=== PATIENT | female | born 1950 | race Caucasian/White ===

== ENCOUNTER 2017-12-14 12:50 | Inpatient (IN) | payer MEDICARE, MEDICAID ==
[~2017-12-14] VITALS: Ht 147.3 cm; Wt 101.8 kg
--- NOTE | 2017-12-14 12:50 | NUR ---
Patient transferred by EMS from [facility] in [place]. Taken to room 304 via stretcher. Transferred into bed. Patient is awake and alert. BEAUTY SHOP MANAGER introduced herself and asks the patient if her name is Akua. Patient responds "yea." Utters single words at times, otherwise no verbal response. Has minimal response to painful stimuli intermittently. Unable to follow verbal commands or assist with cares. Continuous movement of left foot noted, unsure if movement is purposeful. No movement of other extremities at time of assessment. Respirations uplabored on room air with trach capped. Tracheostomy tube secured with trach tube auguste neckband. Mepilex Ag dressing surrounding trach insertion site is clean, dry, and intact. Bowel sounds audible x4. umbilical hernia noted. PEG tube to LUQ is patent. Tube marked at 4.5 cm at the skin. Skin surrounding PEG insertion site is intact with no redness or drainage. Drain sponge is clean, dry, and intact. Patient is incontinent of bowel and bladder. Stool is brown and loose. No liquid stool noted. Incontinent care provided, clean brief applied. All skin is intact with no redness, irritation, or breakdown. Skin to abdominal folds and groin is clean and dry. Few small healing bruises noted to bilateral upper extremities. Head of bed elevated to approximately 35 degrees. Patient is alert, but does not respond or interact during admission assessment. Explained use of call light to patient, and placed beside arm. Fall precautions in place. Patient has chronic cough.
--- NOTE | 2017-12-14 14:05 | NUR ---
Jai Torres PA-C at bedside.
[2017-12-14 14:25] VITALS: BP 153/88
[2017-12-14 15:31] LABS: EOS # 0.1 (0.04-0.40); HEMATOCRIT 41.4 % (37.0-47.0); LYMPH# 1.6 (1.50-4.00); MEAN CELL VOLUME 94 fl (78-100); MEAN CORPUSCULAR HEMOGLOBIN 29 pg (27-31); MEAN CORPUSCULAR HGB CONC 31 g/dL (33-37); MONO # 0.8 (0.20-0.80); NEU # 7.6 (1.40-6.50); PLATELET COUNT 180 K/mm3 (130-400); RED BLOOD COUNT 4.43 M/mm3 (4.10-5.30); RED CELL DISTRIBUTION WIDTH 15.6 % (11.5-14.5); WHITE BLOOD COUNT 10.2 K/mm3 (4.8-10.8)
[2017-12-14 15:38] LABS: MEAN PLATELET VOLUME 12.7 fl (7.4-10.4)
[2017-12-14 15:42] LABS: ALBUMIN 3.9 g/dL (3.5-5.0); CALCIUM 9.8 mg/dL (8.4-10.2); POTASSIUM 4.8 mmol/L (3.6-5.0); TOTAL BILIRUBIN 0.5 mg/dL (0.2-1.3); TOTAL PROTEIN 7.7 g/dL (6.3-8.2)
[2017-12-14 18:56] VITALS: BP 123/76
[2017-12-14 19:39] LABS: URINE APPEARANCE HAZY; URINE BILIRUBIN NEGATIVE (NEGATIVE); URINE BLOOD NEGATIVE (NEGATIVE); URINE COLOR YELLOW; URINE GLUCOSE NEGATIVE (NEGATIVE); URINE KETONE NEGATIVE (NEGATIVE); URINE LEUKOCYTE ESTERASE NEGATIVE (NEGATIVE); URINE NITRATE NEGATIVE (NEGATIVE); URINE PROTEIN(semi-quant) 1+ mg/dL (NEGATIVE); URINE UROBILINOGEN NORMAL (NORMAL)
[2017-12-15] MEDS ORDERED: ZANTAC150 M1 PEG (03:49)
[2017-12-15] MEDS ORDERED: BANATROL PLUS1 SOL PEG (03:49)
[2017-12-15] MEDS ORDERED: IPRATROPIUM BROM3 M1 IH (03:49)
[2017-12-15] MEDS ORDERED: PARLODEL2.5 MG PEG (03:50)
[2017-12-15] MEDS ORDERED: CATAPRES0.1 M1 PEG (03:51)
[2017-12-15] MEDS ORDERED: COREG 25MG25 MG/TAB PEG (03:51)
[2017-12-15] MEDS ORDERED: GOOD SENSE ASPI81 M1 PEG (03:51)
[2017-12-15] MEDS ORDERED: LIPITOR20 M2 PEG (03:52)
[2017-12-15] MEDS ORDERED: AMANTADINE100 M1 PEG (03:53)
[2017-12-15] MEDS ORDERED: ALLFEN400 MG PEG (03:53)
[2017-12-15] MEDS ORDERED: ZESTRIL2.5 M1 PEG (03:54)
[2017-12-15] MEDS ORDERED: METFOMIN HYDRO850 MG PEG (03:54)
[2017-12-15] MEDS ORDERED: ZOLOFT 50MG50 MG PEG (03:56)
[2017-12-15] MEDS ORDERED: RITALIN5 M1 PEG (03:56)
[2017-12-15] MEDS ORDERED: EFFER-K20 MEQ PEG (03:57)
[2017-12-15] MEDS ORDERED: NYSTATIN15 GM TP (03:58)
[2017-12-15] MEDS ORDERED: NOVOLOG FLEX100 U/ML SQ (03:58)
[2017-12-15] MEDS ORDERED: ALBUTEROL2.5 MG/3 M IH (03:59)
[2017-12-15] MEDS ORDERED: CALAMINE LOTIO177 M2 TP (03:59)
[2017-12-15] MEDS ORDERED: QUALITY CH400 MG/5 M PEG (04:00)
[2017-12-15] MEDS ORDERED: ACETAMINOPHEN325 M1 PEG (04:01)
[2017-12-15] MEDS ORDERED: ULTRACET TABLE1 EACH PEG (04:02)
[2017-12-15] MEDS ORDERED: HYDRALAZINE HYD50 MG PEG (04:02)
[2017-12-15] MEDS ORDERED: ENEMEEZ MINI E283 MG RC (04:03)
[2017-12-15] MEDS ORDERED: DULCOLAX10 M1 RC (04:03)
--- NOTE | 2017-12-15 07:10 | NUR ---
TRACH CARE PROVIDED AT THIS TIME, NO COMPLICATIONS OR CONCERNS NOTED, TRACH SITE IS CLEAN AND DRY AT THIS TIME, NO DRAINAGE NOTED, INTERMITTENT COUGHING DURING TRACH SITE CARE BUT PT IS ABLE TO CLEAR HER OWN SECRETIONS AT THIS TIME VIA COUGH
[2017-12-15 07:13] VITALS: BP 153/100
--- NOTE | 2017-12-15 07:30 | NUR ---
TEQUILA (OIL PIPE INSPECTOR) ORDERS TO CONTINUE CURRENT TUBE FEEDING SCHEDULE INCLUDING 290ML JEVITY WITH 135ML WATER FLUSH PRE/POST FEED WITH EXCEPTION TO THE 1600 FEEDING. DURING 1600 FEEDING WE ARE TO ADD 1 PACK OF MANDI MIXED IN 240ML WATER IN ADDITION TO THE JEVITY, ONLY TO FLUSH WITH 30ML PRE/POST DURING THIS FEEDING SESSION FEEDING SCHEDULE REMAINS 0800,1200,1600,2000,0000
--- NOTE | 2017-12-15 09:20 | NUR ---
CALL TO AT THIS TIME TO REVIEW MED CONCERNS FROM PHARMACY, ALL APPRORPIATE NEW ORDERS AND DOSAGES/ROUTES SENT TO PHARMACY AT THIS TIME, PT'S MEDICATIONS UPDATED ACCORDINGLY
--- NOTE | 2017-12-15 17:30 | NUR ---
DURING PM TUBE FEEDING PATIENTS TALKING ABOUT THEIR DOGS AND DURING CONVERSATION PATIENT BEGAN APPROPRIATELY LAUGHING WHEN WOULD TELL A JOKE, THIS HAS HAPPENED MULTIPLE TIMES THROUGHOUT THIS SHIFT WELL LAST EVENING, PT STILL NONVERBAL DURING THIS ENCOUNTER, EYES ARE OPEN BUT NOT TRACKING AT THIS TIME
--- NOTE | 2017-12-15 17:36 | NUR ---
WILL DISCUSS WITH TOMORROW SETTING UP PATIENT WITH A PULMONOLOGY CONSULT TO FURTHER DISCUSS POTENTIALLY REMOVING TRACH IT HAS BEEN CAPPED FOR OVER A MONTH AND NOT IN USE
--- NOTE | 2017-12-15 18:35 | NUR ---
ELEVATED BP'S DISCUSSED WITH RONY DIALLO, REVIEWING VITAL SIGNS AND MEDICATIONS AT THIS TIME
[2017-12-15 18:42] VITALS: BP 197/88
[2017-12-16 06:34] VITALS: BP 165/90
--- NOTE | 2017-12-16 07:00 | NUR ---
Bedside report received from Cinda PELAYO, care of the pt is assumed at this time.
--- NOTE | 2017-12-16 07:15 | NUR ---
BAYRON REPORT COMPLETED WITH CLAUDIA PELAYO
--- NOTE | 2017-12-16 08:35 | NUR ---
ASSESSMENT COMPLETED, VSS, PATIENT DOES OPEN EYES BUT THERE IS NO EYE CONTACT MADE, AND NO PURPOSEFUL MOVEMENT OF ANY EXTREMITY. MERINO PATENT, PEG TUBE IS NCIELY SECURED WITHOUT INDICATION OF ITTITATION, TRACH REMAINS IN PLACE, CAPPED AND NOT BEING USED AT ATLL, TRACH CARES COMPLETED, SPOUSE SITS IN CHAIR AT BEDSIDE. TUBE FEEDING COMPLETED WITHOUT INCIDIENT
--- NOTE | 2017-12-16 09:15 | NUR ---
PT, OT AND ST WORK WITH PATIENT. THEY USE THE KARLA LIFT TO GET PATIENT FROM BED TO CHAIR AND THEN BACK. PATIENT REMAINS WITHOUT ANY PURPOSEFUL RESPONSES.
--- NOTE | 2017-12-16 12:46 | NUR ---
SPOUSE LEAVES PATIENT ROOM FOR THE FIRST TIME TODAY, HE USES A W/C A SUPPORTIVE DEVICE. PATIENT TOLERATED TUBE FEEDING WELL, HOB ELEVATED APPROX 40.
--- NOTE | 2017-12-16 12:59 | NUR ---
REPORT TO KYMBERLY PELAYO
[2017-12-16 18:23] VITALS: BP 157/82
--- NOTE | 2017-12-16 20:45 | NUR ---
TRACH CARES WERE PERFORMED, ASSESSEMENT COMPLETED, PEG TUBE DRESSING IS CLEAN, DRY AND INTACT, FLUSHES EASILY WITH 70 CC OF WATER, MEDS GIVEN, THEN TUBE FEEDING OF 237 CC OF JEVITY 1.5 GIVEN AND PEG TUBE FLUSED AGAIN WITH 70 CC OF WATER, BREATHING TREATMENT GIVEN WITH NURSE AT BEDSIDE THROUGHOUT, PATIENT TOLERATED WELL, NEB TREATMENT SEEMS TO IRRITATE HER COUGH A LITTLE, DRY NON-PRODUCTIVE COUGH NOTED, SKIN INTACT, SUKH CARES PROVIDED, NURSE HAS NOT SEEN PATIENT MOVE EITHER UPPER EXTREMITY AT ALL, NO MOVEMENT NOTED FROM RIGHT LEG, PATIENT IS ABLE TO WIGGLE LEFT FOOT SOME BUT NO TO COMMAND, OPENS EYES AND LOOKS AROUND A LITTLE BUT DOES NOT SEEM TO LOOK AT THE PERSON TALKING TO HER, NO VERBAL RESPONSES NOTED, PATIENT REPOSITIONED AND SUKH CARES PROVIDED, WHILE PATIENT IS LYING ON THE RIGHT SIDE, NURSE TOLD A JOKE AND PATIENT APPEARED TO LAUGH, MINIMAL SOUND CAME OUT BUT HER BELLY WAS SHAKING AND FACE LOOKED LIKE SHE WAS SMILING, ORAL CARES PROVIDED AND PATIENT SUCKS ON MOUTH SWAB, NURSE PLACES CHAP STICK ON PATIENTS LIPS AND SHE LICKS IT RIGHT BACK OFF, PATIENT DOES NOT MOVE HEAD OR NECK BUT DOES HAVE CONTROL OF HER MOUTH, TONGUE AND SOME FACIAL EXPRESSIONS,
--- NOTE | 2017-12-16 23:20 | NUR ---
PEG TUBE RESIDUAL CHECK-25CC, TUBE FEEDING OF 237CC OF JEVITY 1.5 GIVEN WITHOUT DIFFICULTY, FLUSHED WITH 70 CC OF WATER BEFORE AND AFTER FEEDING, PATIENT REPOSITIONED IN BED, NO ACUTE DISTRESS NOTED, SIDE RAILS UP X 2, CALL LIGHT WITHIN REACH,
[2017-12-17 06:09] VITALS: BP 132/80
--- NOTE | 2017-12-17 09:30 | NUR ---
Therapies assist pt to recliner using kaur lift. Once therapy is complete, this RN administers medications and feeding through PEG tube, flushing with free water before and after. Performed trach and PEG tube cares/cleansing, replaced guaze sponges beneath each. Pt does not follow instruction but does respond to some stimulation like touching lips with chapstick, she will open mouth to allow to be applied and open mouth to accept swab for moisture and cleaning. Pt is left sitting up in recliner after feeding, chair is alarmed.
[2017-12-17 18:33] VITALS: BP 155/57
--- NOTE | 2017-12-18 06:12 | NUR ---
Pt rest in bed during the night. Pt requires staff to preform all cares. Pt makes no verbal communication. Eyes open but pt unresponsive. Tube feeding q 4 hrs per gravity flow. Smith catheter remains in palce with 500cc clear yellow urine in dependent drainage. Pt has one bari lose BM. Pt skin intact but there is was some irritatin on thights due to incontace brief. Trach cleansed and new dressing was put in place. Peg tube cleansed and new dressing in place.
[2017-12-18 06:17] VITALS: BP 144/78
--- NOTE | 2017-12-18 09:20 | NUR ---
Pt alert this am with eyes open. Nonverbal. Pt tracking and able to squeeze hands equally. Meds, Jevity 1.5, and Pectin given via tube per order without issue. PEG and trach dressing c/d/i. Pt repositioned for comfort.
[2017-12-18 18:29] VITALS: BP 137/84
--- NOTE | 2017-12-19 06:18 | NUR ---
Pt continues to remain uresponsive. Pt does open eyes to vocal stimulation but not every time. no facial grimmacing with repositioning. Pt has 2 incontinent stools. Smith cathter remains in place dark anabel urine. Tube feeding Jevity 1.5 tess q 4hrs with 70 cc water prior to feeding and after. Ocassional non-productive cough. Oral care provied when pt is turned. Medications crushed and given through the PEG tube. Clean dressing applied to PEG tube. Trach cleansed and new dressing under trach. Pt has occasional cough. Ashli-area remains mosit at all times, Desenex powder applied.
[2017-12-19 06:32] VITALS: BP 152/91
--- NOTE | 2017-12-19 08:40 | NUR ---
Pt eyes open to tactile stimiui. PROM to arms and pt grimaces. Pt asked if she is having pain. Pt clearly verbalizes, "No, I don't have pain". Pt does not appear to turn to follow activity in the room at this time. Trach capped. Cough noted without production. Lungs clear anteriorly - will check posterior when up in chair). PEG tube intact - 25 ml of residual noted and returned to stomach. PEG flushed w/ 70 mls of water and flows freely per gravity. Meds crushed and administered through PEG, Jevity 1.5 (237ml) given per gravity flow and then PEG flushed w/ another 70 mls of h20 without difficulty. PROM to feet - pt again grimaces with touching to right foot. Right side appears flaccid. Pt has some pull against gravity fall with left arm and does move left toes. Smith patent yellow clear urine.
--- NOTE | 2017-12-19 10:00 | NUR ---
Laughs when staff turning her. Pt noted to have a wet chux underneath her and incontinet of small amount yellow stool. Pericare given and then back washed for comfort. Pt does not assist with turning. No breakdown noted on heels - heels floated. Noted to be a little red at inner thighs - desenex and interdry applied. slight irritation on flavia area d/t stool and moisture - will continue to watch - barrier cream applied. Bed alarm on.
--- NOTE | 2017-12-19 10:45 | NUR ---
Chuxs weighed - 4 oz. Documented in I & O under void.
--- NOTE | 2017-12-19 12:35 | NUR ---
Erik lift used to transfer pt to chair. Lungs clear to asculation posteriorly all lobes. Hands appear more puffy. Arms remain elevated on pillow. PROM to upper extremities and feet prior to going to recliner. Pt grimaces when her arms are raised. Cleansed of small amount of yellow liquid stool.
--- NOTE | 2017-12-19 13:45 | NUR ---
Dr. Persaud notified of weight gain. See orders. Also notified of loose yellow stools and irritation to bottom. See order for immodium.
--- NOTE | 2017-12-19 17:23 | NUR ---
Pt continues to leak around her catheter and noted to have some irritation in periarea. Dr. Johnson aware and recommends irrigation before reinserting a new catheter. Caldwell cath irrigation w/ sterile water by GITA guillaume with return of blood tinged urine. Noted to still have leakage around catheter. Present caldwell cath dc'c and new cath 16 chilean w/ 30 ml bulb inserted by GITA Guillaume using sterile technique w/ return of yellow urine. 30 ml bulb filled w/ NS. Desenex powder to irritated areas and allowed to air dry. scant amound of yellow loose stool noted w/ repositioning and pericare given. chux weighed under pt from leaking catheter - noted 180 ml urine. PROM to upper extremities - no grimacing this time.
--- NOTE | 2017-12-19 18:15 | NUR ---
PEG tube w/ gravity flow tube feeding without difficulty. Pt HOB remains up with feedings and at least 30 minutes after feedings. Occasional "yes" response from pt but not other phrases noted rest of the day. Resp remain unlabored but shallow and 28. Cough noted more in early am than rest of day - no production seen. Urine emptied from caldwell post Lasix - 300 ml plus weighed chuxs from leaking around catheter- see I & 0. No further leaking noted since catheter replaced. Pt appears comfortable today except for occasional grimace earlier in the day. No family here to visit today.
[2017-12-19 19:04] VITALS: BP 122/68
[2017-12-20 00:35] LABS: PH-URINE 8.5 (5.0 - 8.0); URINE APPEARANCE CLEAR; URINE BILIRUBIN NEGATIVE (NEGATIVE); URINE BLOOD 250 ery/uL (NEGATIVE); URINE COLOR YELLOW; URINE GLUCOSE NEGATIVE (NEGATIVE); URINE KETONE NEGATIVE (NEGATIVE); URINE LEUKOCYTE ESTERASE 1+ (NEGATIVE); URINE NITRATE NEGATIVE (NEGATIVE); URINE PROTEIN(semi-quant) TRACE mg/dL (NEGATIVE); URINE UROBILINOGEN NORMAL (NORMAL)
--- NOTE | 2017-12-20 05:26 | NUR ---
Pt amited after failing to make progress at the rehab ceneter followiiny her CVA that left her flaced in all extrimities. PT reuires PEG tube feeding q 4 hrs with 70cc water prior and after. Pt repositioned q 2 hrs and excoriation fom skin. music palyed for pt during the night. Smith catheter to dependant drainage clear yellow urine. No leaking from cathter this shift and no lose stools. Pt make no formaly kind of communication to staff that asssist pt.
[2017-12-20 06:25] VITALS: BP 134/58
[2017-12-20 08:49] LABS: POTASSIUM 3.9 mmol/L (3.6-5.0)
[2017-12-20 09:31] LABS: EOS # 0.1 (0.04-0.40); EOS % 1.4 % (1.0-5.0); HEMATOCRIT 35.6 % (37.0-47.0); HEMOGLOBIN 11.3 g/dL (12.5-16.0); LYMPH# 1.1 (1.50-4.00); MEAN CELL VOLUME 93 fl (78-100); MEAN CORPUSCULAR HEMOGLOBIN 29 pg (27-31); MEAN CORPUSCULAR HGB CONC 32 g/dL (33-37); MONO # 0.5 (0.20-0.80); NEU # 5.2 (1.40-6.50); PLATELET COUNT 135 K/mm3 (130-400); RED BLOOD COUNT 3.84 M/mm3 (4.10-5.30); RED CELL DISTRIBUTION WIDTH 15.2 % (11.5-14.5)
[2017-12-20 09:32] LABS: MEAN PLATELET VOLUME 13.3 fl (7.4-10.4)
[2017-12-20 18:35] VITALS: BP 154/84
--- NOTE | 2017-12-20 19:15 | NUR ---
Bed side shift report received from Hoda Pierre RN. Pt awake, a/o x 3 resting in bed. Call light with in reach of pt. Bed alarm set. Asked pt if she was having any pt. Pt stated "no, I'm not having any pain." Oxygen on at 2L/NC. Int in right AC. No reddness or swelling area none tender to touch.
--- NOTE | 2017-12-20 19:30 | NUR ---
Bed side shift report received from Hoda Pierre RN. Call light with in reach of pt. Bed alarm set. Pt does not open eyes when spoken too. Will squeeze left hand when asked and move left foot when asked. Unable to move right upper arm or right leg and foot when asked. No facial grimacing noted.
--- NOTE | 2017-12-20 20:00 | NUR ---
Tracheostomy care given, dressing changed done. Scant amount of drainage noted on dressing and around trach tube when cleaned. Inner cannula intact, no drainage noted. Tolerated with out difficulty. Pt coughed 3 times, none productive. Sa02 96% on room air. Pulse 90, respirations 16 and even.
--- NOTE | 2017-12-21 01:00 | NUR ---
Resting in bed, eyes closed. Respirations 16 and even. Pulse 101, Sa02 96% on room air. Pt does not open eyes when spoken too. Will follow some commands such as take a deep breath.
--- NOTE | 2017-12-21 05:00 | NUR ---
Sa02 94-96% on room air. Pulse 93, respirations 16-18. Pt has been turned Q two hours. Bed alarm set and call light with in reach of pt. Pt has had none productive loose cough. I have attempted oral suctioning x 3. Pt closes mouth.
[2017-12-21 06:23] VITALS: BP 176/76
--- NOTE | 2017-12-21 07:38 | NUR ---
Bed side shift report given to Hoda Pierre RN
--- NOTE | 2017-12-21 07:45 | NUR ---
Patient resting in bed. Lethargic. Head of bed elevated approximately 30 degrees. Skin is very warm and diaphoretic. Opens eyes only very briefly. Does not speak or interact otherwise. Respirations unlabored on room air with trach capped. Patient has intermittent dry cough. Indwelling caldwell catheter to dependent drainage. Caldwell is free flowing without kinks or twists. Securement device intact to right thigh. PEG tube to LUQ. Drain sponge is clean, dry, and intact. No redness, drainage, or edema noted to PEG insertion site. Call light placed on patients chest. Fall precautions in place.
[2017-12-21 18:47] VITALS: BP 123/59
--- NOTE | 2017-12-21 19:30 | NUR ---
Report received from Nuris PELAYO. Patient opens eyes to verbal stimuli. No verbal response to questions asked. No signs of pain or distress. Trach care provided. Assessment completed. Smith Cath patent to DD with clear yellow urine. PEG tube intact, with dressing CDI. Bed alarm on. Call light in reach. Remains on a turn Q 2 hour schedule with oral cares. HOB elevated 30-45 degrees.
--- NOTE | 2017-12-21 20:30 | NUR ---
Scheduled PEG feeding and medications given via tube. No residual noted. PEG patent. Flushed before and after medications and feeding with water. PECTIN instilled per order. Nebulizer tx administered via mask. Has occasional NPC with medications, feeding and nebulizer tx. HOB remains elevated minimum of 30 degrees.
[2017-12-22 06:30] VITALS: BP 172/83
--- NOTE | 2017-12-22 07:17 | NUR ---
Report to Joie PELAYO.
[2017-12-22 07:22] LABS: CALCIUM 9.4 mg/dL (8.4-10.2); POTASSIUM 4.1 mmol/L (3.6-5.0)
--- NOTE | 2017-12-22 10:00 | NUR ---
UPON ENTERING ROOM, PT NOTED TO HAVE EXPELLED SMALL AMOUNT CLEAR SPUTUM. NOTED TO HAVE BEEN HEARD COUGHING PRIOR TO THIS RN ENTERING ROOM BUT THIS HAS DISSIPATED AT THIS TIME. PT SITS WITH HEAD ELEVATED DURING TUBE FEEDING. 8ML REYNAGA RESIDUAL NOTED. TOLERATED WELL. CLEANSED AROUND STOMA WITH PEROXIDE AND NS AND REPLACED INNER CANNULA. AREA AROUND STOMA WITH SLIGHT IRRITATION AND SCANT AMOUNT THICK BLOOD-TINGED DRAINAGE. REPLACED AG MEPILEX AROUND STOMA SITE. ALSO CLEANSED AND CHANGED DRESSING AROUND PEG TUBE. ONCE PT HAD SET UP FOR APPROX 45 MINUTES, LAYED FLAT, CLEANSED SUKH-AREA AND REPOSITIONED ONTO R SIDE. ALL SKIN INTACT, WITHOUT REDNESS OR BREAKDOWN.
--- NOTE | 2017-12-22 16:42 | NUR ---
On 12-17-17 pt's daughter Brii calls and gives this nurse social info on pt, stating that she likes [employer] and the [employer]. She states that she would like her mother to be able to come back to [facility], [place] and be where the majority of her family lives, including her only grandchildren, and that she would pay for the medical transportation. She states that she needs to be in a LTCF where she can get good care, and that pt's Logan Davis is not able to provide care for her in her home, because it would first of all not even have the room to have a akur lift or a hospital bed. She is appreciative of care given to her mother and is sorry that pt's will no longer respond to this facility or come to see her mother, but she states this is not the first time he has done this. [facility] also would not let him keep food in the ICU and he walked out of this facility and would not speak to any of [facility] staff afterwards. On 12-20-17, this nurse and adm, David Ortiz attend a meeting requested by pt's son, Camron Pedroza and his ; Alberto Pedroza and his ; and pt's ex sister in law, Rochelle. These family members say that the home is not big enough to accomodate a hospital bed and/or a kaur lift, that pt would be better cared for in a LTCF, and that one of them needs to be named DPOA if Logan Davis will not communicate with facility, and they want to know how to get this done. They cannot agree amongst themselves, with Alberto (and his ) being the dissenting voice, on who might be an appropriate DPOA. The names most could agree upon is Brii and Aunt Sara. They propose that pt's Logan Davis is not physically able to take care of their mother in the condition she is in and that not only would it be a detriment to his health but to hers as well for him to attempt to give her the care she will now require. They would like to see her placed in a LTCF for continued care, closer to [place] where they say most of her family is. On 12-21-17, this nurse spoke to pt's sister Sara who was visiting pt, but was at the nurse's station. As facility credit risk manager, Stephie Novoa, has requested phone #'s and addresses of all of the children, Sara was asked if she might be able to give facility this information, she states that she believes she can and will email it to this nurse after confirming w/ the kids that her info is correct. On this date, 12-22-17, this nurse calls pt's to discuss the results of the care planning meeting that is held on this date. Both and pt's listed cell #'s are called and messages left that [facility] CM was attempting to speak to him regarding the care planning meeting and CM return Call # was also left. No response or return call at this time. 12-22-17 Pt's son Alberto calls this nurse and asks why did 2 police officers show up at Logan Davis's home and tell him to call a number that was disconnected. Alberto gives the number of [phone] and wants to know what does this nurse know about it. This nurse states that number was given to him incorrectly, it is [phone], and it is the phone number of Stephie, our credit risk manager, and that she had sent the police officers out to give him a message to call her as he was not responding to any of her calls. Nurses then transfer a call to this nurse's phone from Loganrhoan Davis who wants to know if Stephie is David's boss. He is told, "No she is a credit risk manager who helps us as a facility handle issues such as not being able to communicate w/ family members". Logan Davis is place on hold and Stephie is called and she agrees to call Mr Davis right back at [phone], he is notified and in agreement to keep his phone on for a very short while, but states, he will not keep it on all night. Stephie is notified and agrees to call Mr Davis immediately.
--- NOTE | 2017-12-22 17:10 | NUR ---
Pt's dtr Gloria Blood ([phone]) calls this nurse asking why did her Aunt Sara ask for her contact information. She is notified the our brisket puller, Stephie is trying to get all the children of Akua Davis's contact information so that she can collectively contact them as Mr Davis will not return any of our phone calls and will not speak to us about his 's care and we need to be able to communicate w/ pt's family about her care and her care plan. Gloria is given Tailor Apprentice's phone # to call to discuss further, for which she is thankful and then gives this nurse her contact information [address] [facility] [place] [address] [address] and requests that if we cannot get in touch w/ her at the above # we call her work cell [phone].
[2017-12-22 18:36] VITALS: BP 157/95
--- NOTE | 2017-12-22 20:00 | NUR ---
Report received from Joie PELAYO. Patient rests in bed with eyes closed. No verbal response when spoken too, does not open eyes to nurse voice but opens later during cares. Trach care provided. Noted small amount of thick drainage on old dressing. External trach cleansed and new dressing applied. Patient has some coughing during and after procedure but does not last over 10 minutes. PEG tube site patent. Cleansed and new drain sponge applied. PEG feeding of Jevity 1.5 administered after medications given via PEG. Flushed before and after both medications and feeding. No residual noted prior to feeding. DEBARKER OPERATOR in room to help reposition. Ashli, catheter and oral cares provided. HOB elevated > 30 degrees. Bed alarm on. Call light in reach. L hand elevated on pillow, noted to be puffy.
--- NOTE | 2017-12-23 00:29 | NUR ---
Medication administration. PEG tube feeding, oral cares and repositioning provided. PEG patent. No residual noted. Feeding elicits cough but settles back down after repositioned. Eyes open. No verbal response to Yes or No questions. Bed alarm on. Call light in reach.
[2017-12-23 06:14] VITALS: BP 139/84
--- NOTE | 2017-12-23 06:20 | NUR ---
PACKAGING MATERIALS INSPECTOR notified of 2 lb Wt gain since yesterday and 6 lbs since admit.
[2017-12-23 06:35] LABS: CALCIUM 8.8 mg/dL (8.4-10.2); POTASSIUM 4.3 mmol/L (3.6-5.0)
--- NOTE | 2017-12-23 07:06 | NUR ---
Report to Joie PELAYO.
--- NOTE | 2017-12-23 09:45 | NUR ---
Pt has been coughing this AM and unable to raise any sputum. Swabbed mouth, allowed pt to swallow excess water and changed out inner cannula. This appeared to calm cough for approx 10 minutes then pt began coughing again. Suctioned trach via sterile procedure. Removed small amount thick, white sputum via suction x 3 passes. Hyperoxygenated between each pass. Pt tolerated well. Replaced inner cannula again. Pt calm, no coughing noted, appears comfortable.
--- NOTE | 2017-12-23 11:30 | NUR ---
Talked with Jannette RT at [facility] regarding pt continued coughing. She reinforces to continue suctioning PRN if cough sounds "wet" and agrees that from this RN report, the trach is most likely irritating trachea r/t q2 hour turns and repositioning for feedings and meds.
--- NOTE | 2017-12-23 12:00 | NUR ---
Met w/ SWB team this am to discuss further poc, which was decided that a CARE Assessment would most likely be needed so that pt might either continue SN care in a facility closer to her or in case she should eventually need LTC the CARE Assessment would be completed. Called Bertin's phone # [phone] and Logan Davis's phone # and left messages at both that a CARE Assessment has been requested from [facility] as our SWB team plans for discharge in advance and should she need to continue care in a SNF or possibly LTCF this would be completed, or if she should be able to return to her home a CARE Assessment can help get her the community resources she may need.
--- NOTE | 2017-12-23 13:00 | NUR ---
Pt's sister Sara arrives w/ Bertin, pt's youngest son and caregiver. Therapies are notified that Bertin is available for caregiver training. Bertin states he thinks w/ training he could take care of her but he also states that he does not think the home is big enough to hold a hospital bed or a lift. He states he has gotten earlier message about CARE Brakeshoe Repairer and will pass it on to Logan Davis, and he is told that as he is a caregiver (he states he is mostly the one who does all the care for his mother) he might be able to answere CARE Brakeshoe Repairer's questions. He is agreeable. Pt sister Sara gives a list of all of pt children's contact information.
--- NOTE | 2017-12-23 13:30 | NUR ---
Sister here along w/ pt's son.
--- NOTE | 2017-12-23 17:00 | NUR ---
Pt noted to have increased cough and increased edema noted to extremeties. Pt is also noted to have decreased urine output during this shift. Notified Jai Goldberg APRN, new orders obtained.
[2017-12-23 17:56] LABS: EOS # 0.1 (0.04-0.40); EOS % 0.9 % (1.0-5.0); HEMATOCRIT 37.4 % (37.0-47.0); HEMOGLOBIN 11.9 g/dL (12.5-16.0); MEAN CELL VOLUME 93 fl (78-100); MEAN CORPUSCULAR HEMOGLOBIN 30 pg (27-31); MEAN CORPUSCULAR HGB CONC 32 g/dL (33-37); MEAN PLATELET VOLUME 12.6 fl (7.4-10.4); MONO # 0.7 (0.20-0.80); NEU # 5.7 (1.40-6.50); PLATELET COUNT 137 K/mm3 (130-400); RED BLOOD COUNT 4.04 M/mm3 (4.10-5.30); RED CELL DISTRIBUTION WIDTH 15.1 % (11.5-14.5); WHITE BLOOD COUNT 7.5 K/mm3 (4.8-10.8)
--- NOTE | 2017-12-23 17:57 | NUR ---
Performed lavage on tracheostomy using sterile suction and 0.9% Sodium Chloride 3ml nebule. Minimal clear, thick sputum suctioned. Pt tolerated well and coughing has decreased at this time.
[2017-12-23 18:11] VITALS: BP 158/73
[2017-12-23 18:11] LABS: ALBUMIN 3.6 g/dL (3.5-5.0); CALCIUM 9.1 mg/dL (8.4-10.2); POTASSIUM 4.5 mmol/L (3.6-5.0); TOTAL BILIRUBIN 0.6 mg/dL (0.2-1.3); TOTAL PROTEIN 6.9 g/dL (6.3-8.2)
--- NOTE | 2017-12-23 18:30 | NUR ---
Recheck pt, she is noted to be lying L side, relaxed position, no signs of distress, no cough at this time.
--- NOTE | 2017-12-23 19:15 | NUR ---
Shift report received from Joie Rahman RN. Pt resting in bed, eyes closed with even and none labored respirations. Bed alarm set. Call light with in reach of pt. Sa02 97% on room air. Pulse 92, Respirations 28. Smith to dependant drainage. Urine color clear yellow.
--- NOTE | 2017-12-23 21:10 | NUR ---
2000 Tracheostomy care given, pt tolerated with out difficulty. Sa02 99% on room air. Pulse 96, Respirations 24. 2100 Tolerated peg tube feeding with out difficulty.
--- NOTE | 2017-12-23 21:29 | NUR ---
Tolerated breathing treatment without difficulty. Sa02 97% on room air, pulse 96, respirations 28 and even. Pt does not open eyes when spoken too. Pt will follow a few commands such as squeezing my finger with her left hand when asked and taking deep breaths when asked.
--- NOTE | 2017-12-24 01:00 | NUR ---
Resting in bed, eyes closed respirations continue to be 28 and even. Pulse 93, Sa02 97% on room air. Oral care given Q 2 hours. Repostioned Q 2 hours.
--- NOTE | 2017-12-24 04:30 | NUR ---
Sa02 96% on room air. Pulse 94, respirations 28 and even. Oral care given. Cool wash cloth to face and axillary area at 0030 and 0430. Pt each time pt opened eyes and smiled.
[2017-12-24 06:30] VITALS: BP 140/80
[2017-12-24 07:05] LABS: CALCIUM 9.3 mg/dL (8.4-10.2); POTASSIUM 4.2 mmol/L (3.6-5.0)
--- NOTE | 2017-12-24 07:15 | NUR ---
Shift report given to Joie Rahman RN
--- NOTE | 2017-12-24 09:00 | NUR ---
Pt given medications and tube feeding via gravity to PEG tube. Pt noted to be comfortable, no coughing, no signs of distress noted. Skin all intact. Pt continues to have generalized edema in all extremeties. Note that pt has cough with bx tx. Discuss with provider who d/c's med at this time. Smith with clear yellow urine to dependant drainage.
--- NOTE | 2017-12-24 10:40 | NUR ---
Pt up to recliner with therapies.
--- NOTE | 2017-12-24 12:30 | NUR ---
bedside report from celia kelsey
--- NOTE | 2017-12-24 13:00 | NUR ---
TYLENOL GIVEN PER PEG FOR TEMP AND PRN SALINE STEFAN ALSO GIVEN,
--- NOTE | 2017-12-24 13:40 | NUR ---
PATIENT SLEEPS SOUNDLY, SHE APPEARS VERY COMFORTABLE
--- NOTE | 2017-12-24 15:49 | NUR ---
CATH URINE SPEC TO LAB
[2017-12-24 16:48] LABS: URINE APPEARANCE HAZY; URINE COLOR YELLOW; URINE PROTEIN(semi-quant) 1+ mg/dL (NEGATIVE)
[2017-12-24 16:49] LABS: URINE BILIRUBIN NEGATIVE (NEGATIVE); URINE BLOOD 50 ery/uL (NEGATIVE); URINE GLUCOSE NEGATIVE (NEGATIVE); URINE KETONE NEGATIVE (NEGATIVE); URINE LEUKOCYTE ESTERASE 2+ (NEGATIVE); URINE NITRATE NEGATIVE (NEGATIVE); URINE UROBILINOGEN NORMAL (NORMAL); URINE WBC >50 /hpf (0-3)
[2017-12-24 18:02] VITALS: BP 156/81
--- NOTE | 2017-12-24 19:05 | NUR ---
bedside repor to lexi sewell
[2017-12-25 06:22] VITALS: BP 158/84
--- NOTE | 2017-12-25 07:36 | NUR ---
Repositioned Q 2 hours and PRN with oral cares. Nebulizer tx given x1 for cough. Report to Nuris PELAYO.
--- NOTE | 2017-12-25 14:00 | NUR ---
Dr. Johnson notified of irritation to patient's tongue.
--- NOTE | 2017-12-25 15:05 | NUR ---
Dr. Johnson at bedside.
--- NOTE | 2017-12-25 17:50 | NUR ---
Patient alert and oriented. Rates pain 6/10 to bilateral feet and neck. PRN norco administered per patient request. At rest, oxygen saturation 99% on oxygen at 2 liters via nasal cannula. With ambulation, oxygen saturation 94-97% on oxygen at 3 liters via nasal cannula. Oxygen decreased to 1 liter at rest, and 2 liters with ambulation. Patient reports shortness of breath with exertion, states that it is no more than usual. Demonstrates correct usage of I.S. when prompted. ANNITA wraps to bilateral lower extremities removed after patients report of discomfort. Patient denies needs or questions at this time. Fall precautions in place.
[2017-12-25 18:42] VITALS: BP 121/77
--- NOTE | 2017-12-25 20:30 | NUR ---
Report received from Nuris PELAYO. Patient rests in bed. Eyes closed. No verbal response with stimulation. Opens eyes with cares. Scheduled PEG tube feeding and medications administered via PEG with gravity flow. 10cc residual noted prior to feeding. Feeding elicits cough from patent. HOB elevated 30-45 degrees before, during and after feeding. Incontinent of large amount of soft BM. Continues to ooze BM from rectum continous after cleansing. Anal region with pinpoint bleeding areas from frequent BM's. Barrier cream applied. Repositioned with oral cares. Trach care provided. Has moderate amount of thick yellow mucous on old dressing. Inner cannula changed. Shows no signs of pain or distress at this time. Continues to have generalized edema, with Bilateral hand edema as well.
--- NOTE | 2017-12-26 00:36 | NUR ---
Incontinent of large soft BM. Ashli cares provided. Repositioned. Again coughing noted with administration of bolus feeding. Stops after repositioned. HOB elevated 30 degrees. Bed alarm on. Call light in reach.
--- NOTE | 2017-12-26 06:02 | NUR ---
Coninues to have oozing of stool but has slowed down. Continues to cough with feedings. Trach care done x2 this shift. Repositioned with oral cares Q 2 hours. Unresponsive most of this shift. Opened eyes x1 early in night.
[2017-12-26 06:25] VITALS: BP 116/75
--- NOTE | 2017-12-26 06:59 | NUR ---
Report to Nuris PELAYO.
--- NOTE | 2017-12-26 10:00 | NUR ---
Patient awake, drowsy, opens eyes intermittently for short periods of time. Respirations nonlabored on room air with trach capped. Trach care provided. Increased amount of thick pale yellow secretions noted. Trach tube neckband changed. Oral care provided. Continues to have dry cough. Incontinent of bowel. Ashli care provided. Indwelling urinary catheter to dependent drainage. Smith is free flowing without kinks or twists. Securement device intact to left thigh. Urine in drainage bag is blood tinged. Catheter care provided. PEG tube to LUQ. Small amount of bloody drainage noted to drain sponge. Skin around PEG insertion site is intact with no redness or irritation. Clean drain sponge applied. Face cleaned with warm wash cloth. Hair combed. x2 assist with dressing. Transferred into chair with use of full body lift and staff x2. Positioned for comfort. Lower extremities elevated. Patient laughs occasionally at appropriate times. Fall precautions in place.
[2017-12-26 18:09] VITALS: BP 137/81
--- NOTE | 2017-12-26 19:15 | NUR ---
Bed side shift report received from Hoda Pierre RN. Pt resting in bed, with eyes closed and even respirations. Bed alarm set and call light with in reach of pt.
--- NOTE | 2017-12-26 20:45 | NUR ---
0 Tolerated tracheostomy care given with out difficutly. Oral care given. Ashli care and coccyx care given. Small amount of moon loose stool noted. Smith catheter care given. Pt tolerated all without difficulty. Pt had small brief episode of coughing. Cough none productive. Peg tube feeding given. Tolerated without difficulty. Pt resting in bed in up right position position. Head of bed completely elevated during feeding and at rest after.
--- NOTE | 2017-12-26 20:46 | NUR ---
Oral care given. Facial care given. Lotion applied to face, hands and feet. Tolerated without difficulty. Pt smiled while care being given. I asked pt if she was having any pain. Pt stated "no." I asked pt if she was comfortable. Pt stated "yes."
--- NOTE | 2017-12-26 22:00 | NUR ---
Repositioned in bed, call light with in reach of pt. Bed alarm set.
--- NOTE | 2017-12-27 00:40 | NUR ---
0000 Repositioned onto back, head of bed elevated to 60 degrees. 0040 Tolerated peg tube feeding without difficulty. Oral care given. Chapstick applied to pt's lips. Pt opened eyes when given oral spung and smiled will oral care given. Pt opened left hand when asked. Passive ROM of motion and massage to both right and left hand done. Passive ROM and massage given with both right and left foot. Tolerated without difficutly. Pt smiled and opened eyes briefly.
--- NOTE | 2017-12-27 04:40 | NUR ---
Q hourly checks done. Bed alarm set and call light with in reach of pt. Tolerated peg tube feeding without difficulty. Sa02 99% on room air. Pulse 91 and Respirations 18 and even.
[2017-12-27 06:22] VITALS: BP 152/80
--- NOTE | 2017-12-27 07:15 | NUR ---
Bed side shift report given to Sherley Britt RN
--- NOTE | 2017-12-27 07:16 | NUR ---
BAYRON REPORT FROM LAURY PELAYO
[2017-12-27 07:28] LABS: ALBUMIN 3.2 g/dL (3.5-5.0); POTASSIUM 4.1 mmol/L (3.6-5.0); TOTAL BILIRUBIN 0.5 mg/dL (0.2-1.3); TOTAL PROTEIN 6.6 g/dL (6.3-8.2)
--- NOTE | 2017-12-27 08:30 | NUR ---
AM ASSESSMENT COMPLETED, NO NEW FINDINGS NOTED. PATIENT CONTINUES TO COUGH OCCASIONALLY, THIS APPEARS TO BE A DRY COUGH
--- NOTE | 2017-12-27 11:25 | NUR ---
THERAPY STATES THIS PATIENT IS COUGHING FREQUENTLY DURING TREATMENT, SHEIS GIVEN A SALINE STEFAN TREATMENT
--- NOTE | 2017-12-27 11:57 | NUR ---
PATIENT CONTINUES TO COUGH, NOW IT SOUNDS MOR LIKE A WET COUGH, TRACH IS CUTIONED USING STERILE TECHNIQUE, THERE IS MINIMAL SECRETIONS REMOVED, THESE ARE CLEAR AND THIN. SHE TOLERATED THIS WELL.
--- NOTE | 2017-12-27 13:05 | NUR ---
REPORT TO EILEEN PELAYO
--- NOTE | 2017-12-27 13:21 | NUR ---
Mala Brewster, OT, at pt bedside for therapies.
--- NOTE | 2017-12-27 17:11 | NUR ---
Received call from Roseline Brooks who is attempting to schedule CARE Assessment per [facility]. Pt's tells Roseline to cancel CARE until his has regained more of her functional ability as he anticipates pt being in our facility for some time still. This nurse explains to CARE Retail Area Manager that while we are working w/ pt to regain all that she can, therapists do not think she will regain a lot of physical function and that she will be bedfast the rest of her life and will need 2 trained caregivers in the home 21/12 w/ a hospital bed and lift. Her current caregivers have not come in for training and family members who do visit do not think that the caregivers in the home will be able to provide for the care she needs and feel that she will need to be transitioned to a LTCF. Roseline calls back and states that she has notified the pt's that we are still requesting that the CARE be done on this date and he said he will only be available by phone on this date and time, 12-29-17 @ 1:00.
[2017-12-27 18:00] VITALS: BP 123/76
--- NOTE | 2017-12-27 19:20 | NUR ---
1909 Bed side shift report received from Hoda Pierre RN. 1914 Trach care given, Pt tolerated without difficulty. Sa02 99% on room air, pulse 88, respirations 26 and even.
--- NOTE | 2017-12-27 19:40 | NUR ---
Pt able follow commands when asked. Pt able to take deep breaths and squeeze left hand when asked. Opens eyes and smiles and giggles appropriately when I am talking to her.
--- NOTE | 2017-12-27 23:16 | NUR ---
2242 Pt continues to have dry, none productive cough. Normal saline breathing treatment given. Sa02 98% on room air. 2299 Resting in bed, eyes closed and even respirations. Bed alarm set and call light with in reach of pt. No coughing noted. 2315 Pt's sister phoned in, report given on pt's condition and progress.
--- NOTE | 2017-12-28 01:15 | NUR ---
3524-3948 Tolerated peg tube feeding without difficulty. Pulse 84, respirations 26 and even. Sa02 98% on room air. Pt opened eyes briefly, hand and arm exercises done. Pt briefly moaned out when exercises started. No facial grimacing noted with exercise.
--- NOTE | 2017-12-28 01:38 | NUR ---
Pt noted to have dry cough. Given normal saline breathing treatment. Sa02 98%, respirations 26, pulse 89. Tolerated without difficulty.
--- NOTE | 2017-12-28 03:35 | NUR ---
0331 Pt noted to have dry cough. Sa02 97% on room air. Pulse 88, respirations 26. Normal saline breathing treatment started. 0340 Tolerated normal saline treatment without difficutly. Lung sounds CTA upper and lower lobes.
--- NOTE | 2017-12-28 04:30 | NUR ---
0400 Incontinent of moderate amount of stool. BM liquid light brown to moon color. Ashli care and coccyx care given. 0430 Tolerated peg tube feeding without difficulty.
[2017-12-28 06:23] VITALS: BP 114/71
--- NOTE | 2017-12-28 07:12 | NUR ---
Shift report given to Hoda Pierre RN
--- NOTE | 2017-12-28 09:30 | NUR ---
Deanne from [facility] calls this nurse to notify her that pt has care assessment scheduled for tomorrow. She reports pt has been uncooperative to attend to meeting tomorrow and since pt is unable to answer questions she will need 2 staff members present as witnesses during assessment. Pt nures and personal care worker notified of this.
[2017-12-28 18:30] VITALS: BP 143/66
--- NOTE | 2017-12-28 18:54 | NUR ---
This nurse has called Bertin's phone # as Logan Davis has directed us to do. The first call hung up w/o ability to leave a message, even though Bertin answered. Called back and this time Bertin answered and I told him I was calling to ask him to remind Mr Davis that his mother would have a CARE Assessment at 1:00 pm tomorrow and when I offered to give him the phone number to his mother's room, he hesitated and then said that the Manufacturing Assistant said she would call Mr Davis on his phone at the time of the meeting.
--- NOTE | 2017-12-28 22:32 | NUR ---
Report received at shift change from Nuris PELAYO. Patient resting supine in bed with HOB elevated 30 degrees. PEG tube site patent with small amount of sero-sang. drainage on dressing. Area cleansed with sterile saline and new dressing applied. 10 CC residual noted prior to tube feeding. Medications given via PEG tube with 30 ML flush before and after. Jevity 1.5 tube feeding given and tolerated but did cough some during feeding. PECTIN 30 ML given after feeding. Trach care provided. Had moderate amount of thick yellow phelm on dressing and around outer cannula. Inner cannula changed. No verbal response during cares. Eyes opened. Repositoned with oral cares Q 2 hours by staff. Smith patent to DD with yellow hazy urine. Bed alarm on.
--- NOTE | 2017-12-29 04:14 | NUR ---
Scheduled PEG tube feeding given. Had medium soft BM x2 this shift. No residual prior to feeding. Opens eyes. No verbal. Shows no signs of pain. Repositoned with oral cares.
[2017-12-29 06:27] VITALS: BP 123/76
--- NOTE | 2017-12-29 06:50 | NUR ---
Patient had coughing spell. Saline nebulizer tx given. Cough subsided. Rests with eyes closed. HOB elevated 30 degrees.
--- NOTE | 2017-12-29 07:30 | NUR ---
Report to Joie PELAYO
--- NOTE | 2017-12-29 09:30 | NUR ---
Set HOB to 45 degrees and administered medications and feeding through PEG tube. No cough noted during this time, pt tolerated well. Cleansed around trach and applied new drain sponge. Removed moderate amount thick green mucous from around trach. Changed out disposable inner cannula, no drainage noted. PEG tube flushes easily to gravity. Smith catheter intact with clear yellow urine to dependant drainage. Pt lying supine, no distress noted.
--- NOTE | 2017-12-29 14:30 | NUR ---
Pt up to WC with Mala Brewster OT. Compression gloves in place to bilat hands. Pt sister and OT escort pt outside then sit in room and talk to pt. Pt does not speak but does open eyes occasionally to voice.
--- NOTE | 2017-12-29 16:03 | NUR ---
Deanne Parmar from [facility] did CARE Assessment for pt on this date. She had been given all contact info for Logan Davis and had contacted him offering to meet him in [facility] parking lot and escort him in so that he did not have to contact staff and when he refused she offered to meet him in [facility] parking lot, and when he refused she offered to meet him anywhere in [place] of his choice and he continued to refuse. She requested that because he was uncooperative and would not be present to sign, and had only agreed to be present via telephone, she would need RN's present to sign CARE Assessment. Stephie Novoa, RN; Myrna Lo, RN; and this nurse were all present for CARE Assessment. Deanne was able to contact Mr Davis by using her cell phone, as she told him she would. He answered promptly when she called and she put him on speaker phone w/ his permission and knowledge, so all in the room could hear him. Mr Davis answered all of Tray Delivery Aide's questions politely and gave her permission to contact Gisela Armstrong, sister of pt and Brii Avendano, dtr of pt for any additional information. He did not express any interest in how his was currently doing even though he had not seen her in 2 weeks. He did express his belief that she would need to stay in [facility] for 100 days, as Mr Davis refused to make LTC choice stating his would be in [facility] for 100 days so he did not want to make that choice at this time. After this meeting, this nurse called Mr Davis on both his cell and then called Bertin. A VM @ Mr Davis's number and a verbal message to Bertin was given informing Mr Davis that a Care Planning Meeting had been held on and if he would like information on the condition of his , he could call this nurse who would be glad to discuss his 's current condition and the plan of care for her. Bertin stated he would give the message to Mr Davis along w/ phone number [phone] to call back - this info was also left on Mr Davis's phone and his 's phone number listed in our charts, as well as the verbal message given to Bertin, whom Mr Davis has directed [facility] to call whenever we wished to speak to him and he would determine if he needed to call back.
[2017-12-29 17:48] VITALS: BP 166/85
--- NOTE | 2017-12-29 20:30 | NUR ---
Report received from Joie PELAYO. Patient rests in bed. Staff in and repositions to supine for PEG tube feeding and medications to be administered by this nurse. Smith cath clamped at this time to obain cath UA per order. Patient opens eyes and states "No" when asked if having any pain. No other verbal response with cares. Scheduled medications given after placement checked via 30 CC air instillation. Residual check and = 0 ML. HOB elevated >30 degrees. Jevity 1.5 given via PEG tube. Peg tube flushed with 30 ML of H20 before and after meds and with 70 ML of H20 before and after feedings. PEG tube site cleansed with sterile H20. Old dressing with small amount of sero-sanguaous drainage, removed and new drain sponge applied. Trach care provided. Inner cannula removed and replaced. Dressing around outer cannula removed, had moderate amount of thick yellow/bloody drainage. Outer cannula cleansed with peroxide and saline. moderate thick yellow blood tinged secretions. New dressing applied. Patient tolerated well. Some coughing with tube feeding and trach care but settle after. Cath UA obtained and taken to lab by DION. Ashli-cares by DION. Staff in to repostion Q 2 hours with oral cares.
[2017-12-29 21:46] LABS: URINE APPEARANCE CLOUDY; URINE COLOR YELLOW
[2017-12-29 21:47] LABS: URINE BILIRUBIN NEGATIVE (NEGATIVE); URINE BLOOD 50 ery/uL (NEGATIVE); URINE GLUCOSE NEGATIVE (NEGATIVE); URINE KETONE NEGATIVE (NEGATIVE); URINE LEUKOCYTE ESTERASE 2+ (NEGATIVE); URINE NITRATE POSITIVE (NEGATIVE); URINE PROTEIN(semi-quant) 1+ mg/dL (NEGATIVE); URINE UROBILINOGEN NORMAL (NORMAL); URINE WBC >50 /hpf (0-3)
--- NOTE | 2017-12-30 04:24 | NUR ---
PEG tube feeding given. Feedings continue to elicit a cough. No verbal response from patient with cares, opens eyes briefly. One loose this shift. Repositioned with oral cares.
--- NOTE | 2017-12-30 05:50 | NUR ---
Staff into provide cares. Smith catheter noted to have vasquez red urine in tubing and bag and a large blood clot and stringy blood clot in tubing. New stat lock applied. Smith cath emptied. Catheter irrigated with 6O ML of sterile water. [place] tinged urine return noted. Will monitor and report to oncoming shift.
[2017-12-30 06:39] VITALS: BP 139/84
--- NOTE | 2017-12-30 09:30 | NUR ---
Tube feeding completed at this time without difficulty. Pt tolerates well. No cough noted, HOB remains at approx 50 degrees. Provide trach care. Replaced soiled trach dressing and cleansed around outer cannula. Replaced inner cannula, no secretions noted. All skin intact, without breakdown. Smith intact with blood tinged urine to dependant drainage. Pt left sitting upright in bed, bed alarm on, bed in lowest position.
--- NOTE | 2017-12-30 12:30 | NUR ---
Completed pt feeding, repositioned and cleaned of incontinent BM. Cleansed flavia-area well, applied desenex powder and placed interdry in groin folds. Note that there is an area on abdomen that rests on thigh that is red and irritated. Placed interdry to protect these areas.
[2017-12-30 18:30] VITALS: BP 141/75
--- NOTE | 2017-12-30 23:09 | NUR ---
Tube feeding and medications given. Trach care provided. Dry hacky cough noted when feeding started. HOB elevated high fowlers during feeding. PEG tube patent. Drain sponge around PEG tube CDI. Tube flushed with water before and after meds and feeding. Thick yellow phelgm noted around trach dressing. Area cleansed, and new dressing applied. DIRECTOR OF MATERNITY SERVICES's in to reposition and provided oral cares.
--- NOTE | 2017-12-31 00:32 | NUR ---
Patient with more persistent cough tonight. Gave saline neb tx with no relief. Oral suctioned with scant amount of phelgm removed and repositioned. No relief. Duoneb nebulizer tx given with HOB elevated 50 degrees and Hand percussion to anterior chest, oral cares. Patient finally cough free at this time.
[2017-12-31 06:08] VITALS: BP 151/84
--- NOTE | 2017-12-31 07:57 | NUR ---
Report to Layne PELAYO
--- NOTE | 2017-12-31 08:00 | NUR ---
BEDSIDE REPORT RECEIVED FROM DRISS CLARK LPN. TRACH CARE PROVIDED PER PROTOCOL. SMALL AMOUNT OF THICK PALE YELLOW/GREEN DRAINAGE PRESENT ON DRESSING AND TO OUTER CANNULA. CLEANSED WITH PEROXIDE AND STERILE SALINE. REPLACED DRESSING. INNER CANNULA CHANGED. TRACH CARE PROVIDED WITH OUT DIFFICULTY. PATIENT'S CALL LIGHT WITHIN REACH. BED ALARM ON.
--- NOTE | 2017-12-31 08:30 | NUR ---
WAITING TO GIVE PATIENT'S SCHEDULED MEDICATIONS AND PEG TUBE FEEDING UNTIL PATIENT HAS XRAY CONFIRMING PEG TUBE PLACEMENT.
--- NOTE | 2017-12-31 10:30 | NUR ---
PATIENT LYING ON BACK WITH HEAD OF BED ELEVATED TO 50 DEGREES. PEG TUBE FEEDING OF 237 MLS JEVITY 1.5 AND 140 MLS FREE WATER PER ORDER ALONG WITH MORNING MEDICATIONS FLUSHING BEFORE AND AFTER MEDICATIONS.AIR BOLUS AUSCULTATED FOR PROPER PEG PLACEMENT PRIOR TO USING PEG TUBE. PATIENT BEGAN COUGHING WHEN FEEDING STARTED AND COUGHED THROUGHOUT FEEDING. NOTED THAT FREQUENT COUGH PERSISTS ABOUT 45 MIN AFTER FEEDING. COUGH WET AND HACKY. NOTIFIED.
--- NOTE | 2017-12-31 12:30 | NUR ---
VACUUM CASTER'S IN WITH PATIENT PROVIDING SUKH/MERINO CARE AND TO TURN PATIENT. VACUUM CASTER'S CALL THIS NURSE IN ROOM, REPORTING THAT URINE IN MERINO BAG IS YEAGER RED WITH A MODERATE AMOUNT OF CLOTS IN BAG AND TOWEL BETWEEN LEGS HAD A SMALL AMOUNT OF BLOODY URINE PRESENT ON IT. CALLED. ORDERS RECEIVED.
--- NOTE | 2017-12-31 13:30 | NUR ---
INSULATOR APPRENTICE'S IN WITH PATIENT PROVIDING SUKH/MERINO CARE AND TO TURN PATIENT. INSULATOR APPRENTICE'S CALL THIS NURSE IN ROOM, REPORTING THAT URINE IN MERINO BAG IS YEAGER RED WITH A MODERATE AMOUNT OF CLOTS IN BAG AND TOWEL BETWEEN LEGS HAD A SMALL AMOUNT OF BLOODY URINE PRESENT ON IT. CALLED. ORDERS RECEIVED.
--- NOTE | 2017-12-31 13:45 | NUR ---
THIS NURSE IN TO DO PEG FEEDING. PATIENT REPOSITIONED IN BED TO HAVE PATIENT SITTING STRAIGHTER. UPON MOVING PATIENT STATES "OUCH". WHEN ASKED IF THAT HURT PATIENT STATES "YES". PATIENT PROVIDED PRN TYLENOL.
--- NOTE | 2017-12-31 15:30 | NUR ---
PATIENT'S URINE PEACH COLORED AT THIS TIME. NO MORE CLOTS NOTED IN URINE. WILL CONTINUE TO MONITOR.
[2017-12-31 18:09] VITALS: BP 132/68
--- NOTE | 2017-12-31 19:45 | NUR ---
ALEXIS REPORT GIVEN TO Clifford HODGES RN
--- NOTE | 2017-12-31 19:50 | NUR ---
BEDSIDE REPORT GIVEN TO Clifford HODGES RN
--- NOTE | 2018-01-01 01:27 | NUR ---
PATIENT RESTING IN BED. SHIFT ASSESSMENT COMPLETED AT THIS TIME. PATIENT UNABLE TO ORIENT AND UNABLE TO IDENTIFY PAIN. TRACH CARE COMPLETED. MERINO CATHETER CDI, TO DEPENDENT DRAINAGE, DRAINING PALE YELLOW URINE WITH SEDIMENT, SECURED WITH STAT LOCK. PATIENT CONTINUED ON Q2H TURN SCHEDULE WITH ALL EXTREMETIES ELEVATED. DRESSING AROUND PRG TUBE CDI. TUBE FEEDING AND MEDICATIONS GIVEN WITH FLUSHES BEFORE AND AFTER. HOB AT 45 DEGREES WITH NECK PILLOW AND TOWEL FOR SUPPORT. WILL CONTINUE TO MONITOR PATIENT. CALL LIGHT WITHIN REACH AND BED ALARM ON.
[2018-01-01 06:23] VITALS: BP 116/72
--- NOTE | 2018-01-01 07:20 | NUR ---
BEDSIDE REPORT RECEIVED FROM Clifford HODGES RN
--- NOTE | 2018-01-01 18:00 | NUR ---
PATIENT LYING IN BED WITH TV ON. OCCASIONALLY OPEN EYES. PATIENT LAUGHS AFTER A JOKE IS SAID ON THE TV SHOW SHE IS WATCHING. WHEN THIS NURSE ASKS PATIENT IF SHE LIKES THIS SHOW PATIENT STATES "YEAH" HEAD OF BED ELEVATED TO 50 DEGREES. PEG TUBE FEEDING AND MEDICAITONS ADMININSTERED PER ORDERS. PEG PLACEMENT VERIFIED PRIOR TO FEEDING BY AUSCULTATING AIR BOLUS. 5 MLS RESIDUAL PRESENT.PATIENT'S URINE HAS REMAINED YELLOW AND CLEAR TODAY. NOTED THAT PATIENT HAS NOT COUGHED NEARLY MUCH TODAY COMPARED TO YESTERDAY AND THAT COUGH IS NOT WET SOUNDING ITS MORE OF A DRY HACKY COUGH. PATIENT REMAINED ON EVERY 2 HOUR TURNING SCHEDULE. TRACH CAPPED AND SECURED WITH NECK BAND. PATIENT ASSISTED BY KARLA LIFT INTO CHAIR IN ROOM FOR 2 HOURS THIS AFTERNOON.PATIENT'S CALL LIGHT WITHIN REACH. BED ALARM ON.
[2018-01-01 18:10] VITALS: BP 149/62
--- NOTE | 2018-01-01 19:00 | NUR ---
BEDSIDE SHIFT REPORT RECIEVED FROM GITA VAZQUEZ. PATIENT RESTING IN BED, CALL LIGHT WITHIN REACH AND BED ALARM ON.
--- NOTE | 2018-01-01 20:10 | NUR ---
PATIENT RESTING IN BED. SHIFT ASSESSMENT COMPLETED AT THIS TIME. PATIENT UNABLE TO ORIENT OR VERBILZE PAIN. LUNGS CTA, BARKY COUGH PRESENT, NO SHORTNESS OF BREATH OBSERVED. TRACH CARE PROVIDED. MERINO CATHETER TO DEPENDENT DRAINAGE, DRAINING PALE YELLOW, CLEAR URINE, STAT LOCK MOVED TO LEFT THIGH. PEG TUBE DRESSING CDI, 4 CM OUT. HOB AT 30 DEGREES, NECK PILLOW AND PILLOW USED TO PROP HEAD UP. TUBE FEEING COMPLETED WITH 140 MLS FREE WATER, 30 MLS MIXED WITH PILLS, 120 MLS MIXED WITH SUPPLEMENT, AND 237 MLS OF JEVITY. HEELS FLOATED WITH PILLOWS AND WASH CLOTHES PLACED IN HANDS ALSO ELEVATED WITH PILLOWS. Q2H TURN SCHEDULE CONTINUED. WILL CONTINUE TO MONITOR PATIENT AND GIVE TUBE FEEDINGS Q4H. CALL LIGHT WITHIN REACH AND BED ALARM ON.
--- NOTE | 2018-01-02 01:00 | NUR ---
0049 Has dry, none productive cough. Normal Saline breathing treatment. Pt continued to have dry, none productive cough.
[2018-01-02 06:23] VITALS: BP 122/86
--- NOTE | 2018-01-02 07:20 | NUR ---
BEDSIDE REPORT RECEIVED FROM Clifford HODGES RN
--- NOTE | 2018-01-02 08:00 | NUR ---
PATIENT'S SHIFT ASSESSMENT COMPLETE. PATIENT REMAINS UNRESPONSIVE. TRACH IN PLACE. NO VISIBLE DRAINAGE TO TRACHEOSTOMY AT THIS TIME. PEG TUBE CLAMPED. DRAIN GAUZE DRESSING TO PEG TUBE INSERTION SITE CDI. PATIENT'S URINE YELLOW AND CLEAR. PATIENT HAS NECK PILLOW IN PLACE. ROLLED UP HAND TOWELS PLACED IN PATIENT'S HANDS TO HELP PREVENT ALEX OF MUSCLES. HEAD OF BED ELEVATED AT 40 DEGREES. Q2H TURNING SCHEDULE IN PLACE. CALL LIGHT WITHIN REACH. BED ALARM ON.
--- NOTE | 2018-01-02 10:30 | NUR ---
NOTED THAT PATIENT CONTINUES TO HAVE INCREASE IN COUGHING WHEN FEEDING STARTED. COUGH SEEMS MORE PERSISTANT THIS MORNING DURING AND AFTER FEEDING. PATIENT APPEARS TO BE BREATHING HEAVIER THIS MORNING. COUGH DRY AND HACKY. SP02 97% ON ROOM AIR. RESPIRATORY RATE 22. ORAL SUCTION PROVIDED WITH SCANT AMOUNT OF PHLEGM REMOVED. PRN DUONEB GIVEN.TRACH CARE PROVIDED PER PROTOCOL. PATIENT HAD SCANT AMOUNT OF THICK PALE YELLOW/GREEN DRAINAGE TO TRACH SITE. INNER CANNULA REPLACED. PATIENT TOLERATED WELL. PATIENT'S COUGH SLIGHTLY LESSENED BUT CONTINUES TO APPEAR TO BE BREATHING HEAVIER AFTER INTERVENTIONS. REPOSITIONED PATIENT IN BED ONTO LEFT SIDE AND GIVEN SODIUM CHLORIDE BREATHING TREATMENT. PATIENT NO LONGER COUGHING AND APPEARS TO BE BREATHING COMFORTABLY AND WITHOUT DIFFICULTY.
--- NOTE | 2018-01-02 12:30 | NUR ---
REUSE TECHNICIAN'S IN WITH PATIENT PROVIDING SKUH/MERINO CARE AND TO TURN PATIENT. REUSE TECHNICIAN'S CALL THIS NURSE IN ROOM, REPORTING THAT URINE IN MERINO BAG IS YEAGER RED WITH A MODERATE AMOUNT OF CLOTS IN BAG AND TOWEL BETWEEN LEGS HAD A SMALL AMOUNT OF BLOODY URINE PRESENT ON IT. CALLED. ORDERS RECEIVED.
--- NOTE | 2018-01-02 13:30 | NUR ---
MUD TRUCKER'S IN WITH PATIENT PROVIDING SUKH/MERINO CARE AND TO TURN PATIENT. MUD TRUCKER'S CALL THIS NURSE IN ROOM, REPORTING THAT URINE IN MERINO BAG IS YEAGER RED WITH A MODERATE AMOUNT OF CLOTS IN BAG AND TOWEL BETWEEN LEGS HAD A SMALL AMOUNT OF BLOODY URINE PRESENT ON IT. CALLED. ORDERS RECEIVED.
--- NOTE | 2018-01-02 13:30 | NUR ---
IRRIGATED MERINO CATHETER WITH 50 ML BOLUS STERILE SALINE. MERINO UNCLAMPED WITH IMMEDIATE RETURN OF 60 MLS INTO MERINO BAG. OUTPUT RED WITH MULTIPLE CLOTS. REPEATED 2 TIMES UNTIL OUTPUT IS LIGHT RED TO PINK. NO CLOTS NOTED AT THIS TIME. MERINO CARE PROVIDED. STAT LOCK MOVED ON LEG. WILL CONTINUE TO MONITOR.
--- NOTE | 2018-01-02 15:30 | NUR ---
PATIENT'S URINE PEACH COLORED AT THIS TIME. NO MORE CLOTS NOTED IN URINE. WILL CONTINUE TO MONITOR.
--- NOTE | 2018-01-02 18:00 | NUR ---
noted that patient has not been coughing as much since this morning. during 1200 and 1600 patient coughed a few times. breathing remains even and unlabored. patient remains on q2h turning schedule. lying in bed on left side with neck pillow and rolled towel in place behind head. patient's call light within reach. bed alarm on.
[2018-01-02 18:20] VITALS: BP 138/80
--- NOTE | 2018-01-02 19:39 | NUR ---
BEDSIDE REPORT GIVEN TO GITA HIGGINS
--- NOTE | 2018-01-02 20:30 | NUR ---
Resting in bed, eyes closed and even respirations. Head of bed elevated at 30 degrees. Smith catheter to dependant drainage. Bed alarm set and call light with in reach of pt. Ashli care given. Coccyx care given. Oral care given. Sa02 97% on room air. Respirations even and none labored.
--- NOTE | 2018-01-02 21:42 | NUR ---
Has dry, none productive cough. Given Normal Saline breathing treatment. Sa02 99% on room air. Lung sounds CTA.
--- NOTE | 2018-01-02 23:40 | NUR ---
Coughing episodes stopped after 2 normal saline treatment. 2336 Dry, none productive cough noted. Normal Saline treatment given. Sa02 98% on room air.
--- NOTE | 2018-01-03 00:40 | NUR ---
Sa02 99% on room air. Head of bed at 30 degrees.
--- NOTE | 2018-01-03 01:14 | NUR ---
0104 Pt has none productiven cough. Lung sounds coarse in upper lobes. CTA in bases. Pt given breathing treatment. 0114Tolerated without difficulty. See process intervention for respiratory therapy. Sa02 97-99% on room air after breathing treatment.
--- NOTE | 2018-01-03 04:50 | NUR ---
Q hourly checks done. Bed alarm set and call light with in reach of pt. Smith catheter to dependant drainage. Open eyes when spoken too. I asked pt if she was having any pain. Pt stated "no." Sa02 96% on room air.
[2018-01-03 06:50] LABS: ALBUMIN 3.4 g/dL (3.5-5.0); CALCIUM 8.9 mg/dL (8.4-10.2); POTASSIUM 4.3 mmol/L (3.6-5.0); TOTAL BILIRUBIN 0.4 mg/dL (0.2-1.3); TOTAL PROTEIN 6.4 g/dL (6.3-8.2)
[2018-01-03 06:51] LABS: EOS # 0.1 (0.04-0.40); EOS % 0.8 % (1.0-5.0); HEMATOCRIT 33.5 % (37.0-47.0); HEMOGLOBIN 11.2 g/dL (12.5-16.0); LYMPH# 1.5 (1.50-4.00); MEAN CELL VOLUME 90 fl (78-100); MEAN CORPUSCULAR HEMOGLOBIN 30 pg (27-31); MEAN CORPUSCULAR HGB CONC 33 g/dL (33-37); MONO # 0.9 (0.20-0.80); NEU # 6.9 (1.40-6.50); PLATELET COUNT 173 K/mm3 (130-400); RED BLOOD COUNT 3.74 M/mm3 (4.10-5.30); RED CELL DISTRIBUTION WIDTH 15.2 % (11.5-14.5); WHITE BLOOD COUNT 9.4 K/mm3 (4.8-10.8)
[2018-01-03 07:08] VITALS: BP 132/84
--- NOTE | 2018-01-03 07:20 | NUR ---
BEDSIDE REPORT RECEIVED FROM GITA HIGGINS
--- NOTE | 2018-01-03 07:50 | NUR ---
patient's critical value of cl 83 and that sodium is 121.
--- NOTE | 2018-01-03 09:45 | NUR ---
patient has fine crackles auscultated in right lower lobe. tariq sarah aprn notified.
--- NOTE | 2018-01-03 10:10 | NUR ---
tariq sarah,event security officer in to see patient at this time.
--- NOTE | 2018-01-03 13:07 | NUR ---
Pt's spouse has not returned any calls per this nurse regarding last week's care plan meeting at this time.
--- NOTE | 2018-01-03 17:24 | NUR ---
Pt has been discharged by therapists for continued SN care, however her lab results on this date note that her Na+ has dropped, and Automation Clerk and Dr Persaud have both been consulted and PEG feedings have been adjusted as has Lasix administration. Pt's b/s were running too high so there will now be an accu check w/ each PEG feeding and sliding scale insulin administration. Nursing will continue to skill pt until her Na+ is stabilized. Pt's continues to be uncommunicative w/ staff, never calling about her condition, nor returning [facility] calls. APS student services representative, Arinaelizabeth Ash, calls this nurse on this date stating that due to family concerns for pt's welfare Arina will be attempting to get into the pt's home to assess the living conditions of the home. She states that pt's children have shared photo's of the home w/ her and she has been told that family members state that pt is barricaded in her room w/ a heavy piano or desk blocking off half of her doorway and that the front door is also blocked by heavy furniture. Due to home environment being unsafe or inaccessible and that pt's spouse refuses to communicate w/ staff we are waiting on APS vp legal affairs's recommendations prior to discharging pt as pt's spouse has indicated he wants her to stay all [address] [facility] and then he will care for her at home. Pt's children have spoken to [facility] staff stating that pt cannot be safely cared for at home and request that she be placed in a LTCF such as [facility] which is where she has previously been a resident. Brii Avendano, pt's dtr has told this nurse that she would like to take her to [facility] to be closer to family there, but if this is not possible the only fdc she would like to see pt in, in [place], is [facility]. Pt's sons Camron and Alberto Pedroza, both state pt liked [facility], liked the food and the atmosphere, but checked herself out after 2 days only because she did not want to do therapy. 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 Pt's sister Sara Armstrong also confirms that pt liked [facility]TCF. Based on these family members preference to [facility] and spouse's uncommunicativeness, and pt's inability to communicate her choices or needs, which both this nurse and her sister Sara on this date repeated discussed and asked of her w/ no response, this nurse will check w/ [facility] to see if they will accept pt into LTC once pt's Na+ has stabilized and once APS recommendations are available.
[2018-01-03 18:00] VITALS: BP 127/84
--- NOTE | 2018-01-03 20:45 | NUR ---
Report received from Layne PELAYO. Patient resting in supine in bed with HOB elevated 30 degrees. No verbal response with cares. Eyes closed. Flutter at times but do not open entire time staff in room. Assessment completed. Trach care provided. Scant amount of dried yellow drainage on old dressing. Trach site cleansed and new Mepilex applied. Lungs CTA. Smtih to DD with cloudy yellow urine. PEG tube intact. Scant dried drainage on PEG dressing. Area cleansed and new dressing applied. HOB elevated to 45 degrees. PEG feeding and medications given. 10 ML of water residual noted. Coughs a dry hacky cough with feeding. EMPLOYMENT CASE MANAGER in to help reposition. Incontinent of large amount of soft BM. Ashli rectal cares given. Cath cares. Oral cares. Repositioned Q 2 hrs. No response during entire cares. Eyes remained closed.
--- NOTE | 2018-01-04 05:26 | NUR ---
Accu check 143. No SS insulin required. Scheduled Jevity tube feeding given. No residual prior to feeding. HOB elevated 45 degrees prior to given gravity feed. Patient has been having loose stools with each turn, continues to ooze out of rectum. Retum area breaking down and bleeding due to continuous stools. Barrier cream applied. Has frequent harsh cough. Did not some thick yellow phelgm on trach dressing. Trach care provided. New dressing applied. Oral cares provided. Saline nebulizer tx provided. Oral suctioning provided with no phelgm obtained. Mouth moisturizer provided, repositoned. Continues to cough with no relief.
[2018-01-04 06:25] VITALS: BP 101/71
[2018-01-04 07:10] LABS: POTASSIUM 4.2 mmol/L (3.6-5.0)
--- NOTE | 2018-01-04 07:27 | NUR ---
Report to Jacki PELAYO.
--- NOTE | 2018-01-04 12:51 | NUR ---
Pt's spouse is contacted regarding Care Plan Meeting at 1:00pm. Mr Ryan answers his phone and is notified of Care Plan Meeting and asked if he has any input, questions or concerns, he would like to have the team be notified of and he states, No. He is notified that therapy has discharged pt from their care, but she is still meeting criteria because her Na+ is low. He questions "why after only a few days of care did therapy discharge her" and it is explained that after nearly 3 weeks she is still not able to work w/ therapies, but at this time nursing is qualifying her as we are working on correcting her Na+ level. He states "if her Na+ is low that is because of something you are either putting into her or not putting into her", he is assured the the providers are working on correcting it and once it is corrected she may not be meeting criteria for nursing to continue to care for her at [facility] loc and we may be issuing a 2 day notice of discharge at that time, and LTC will need to be considered as the next loc. He states he is not familiar w/ this, and he is asked if she was previously in [facility], and he states "Yes" and it is explained that this is LTC or a mcc. He is asked if he would choose [facility] for LTC placement for her and he answers yes. He is told that we will be discussing this at the Care Planning meeting and I can call him back w/ more details if he would like. He states, my phone is only on because my son's grandmother has taken him to his first day of TECH school and my phone is on in case there is a problem, I don't know if it will be on much longer." This nurse then suggests that he call the nurse at [phone], and he states I have your number, this nurse then encourages him to call w/ any questions as he likes. He states he will.
[2018-01-04 13:19] LABS: URINE APPEARANCE HAZY; URINE BILIRUBIN NEGATIVE (NEGATIVE); URINE COLOR YELLOW; URINE GLUCOSE NEGATIVE (NEGATIVE); URINE KETONE NEGATIVE (NEGATIVE); URINE PROTEIN(semi-quant) TRACE mg/dL (NEGATIVE); URINE UROBILINOGEN NORMAL (NORMAL)
[2018-01-04 13:20] LABS: URINE BLOOD TRACE (NEGATIVE); URINE LEUKOCYTE ESTERASE 2+ (NEGATIVE); URINE NITRATE POSITIVE (NEGATIVE); URINE WBC >50 /hpf (0-3)
--- NOTE | 2018-01-04 15:18 | NUR ---
PT UP IN CHAIR AT THIS TIME, WILL LEAVE PT IN CHAIR FOR APPROXIMATELY 2 HOURS, FAMILY IN THIS AFTERNOON TO VISIT, PT NOT OPENING EYES OR COMMUNICATING BUT FAMILY REPORTS SHE WILL LAUGH OR SMILE OCCASIONALLY, PT LETHARGIC THROUGHOUT THIS SHIFT AND MORE DIFFICULT TO AROUSE, UNABLE TO VERBALIZE OR COMMUNICATE NEEDS
--- NOTE | 2018-01-04 15:19 | NUR ---
NO COUGH NOTED WITH TUBE FEEDS THIS SHIFT, NO SECRETIONS OR SUCTIONING NEEDED, PT'S HOB ELEVATED 45 DEGREES WITH FEEDINGS AND 30 DEGREES THROUGHOUT REST OF SHIFT
--- NOTE | 2018-01-04 17:29 | NUR ---
Pt's son Camron, his Jeanine, and his aunt Rochelle Pedroza (pt's ex sister in law) visit and request condition report. They are told that therapy has discharged pt as pt is not able to work w/ therapies at this time and that nursing continues to qualify her as her PEG Feedings have had to be adjusted and she has had medication changes to help improve her low Na+ levels. Pt's son Camron states that his brother Alberto recorded an earlier phone call from hospital at approximately the time this nurse made a call to pt's spouse notifying him of Care Planning Meeting. (This nurse was not notified by pt's spouse that she was being recorded during the phone call.) Alberto afterwards sent the recording, complete w/ spouse yelling expletives about this nurse to family members. Pt's spouse has not called back to hear of any additional information from Care Planning Meeting at this time, as this nurse encouraged him to do at the time of the call. Camron also states that APS has become involved and he was asked by his sister and APS commercial sales representative to send pictures of the home to show that it is not safe. He shows this nurse pt's bedroom w/ a door partially blocked and two mattresses on the floor, and states that this is pt's room where she sleeps. Camron expresses appreciation for the care pt is receiving at this facility and also states he is in agreement w/ her going to [facility] and also states that the kids have all pretty much agreed that their Aunt Sara is the best person to be named as guardian and have said as much to Arina w/ APS. [facility] Administration has requested that this nurse ask Sarakendell Armstrong, pt's sister, if she would be in agreement w/ being pt's guardian and this is done. Sara Armstrong states absolutely she is in agreement, and she and pt's dtr Brii have been given creative coordinator by APS to check w/ and they are finding that it will cost them $1700 to $2000 and they will not be able to come up w/ that kind of money any time soon and as the other brother and sisters do not have job incomes and Camron is a disabled vet expecting to have a shoulder operation in Dec and another in Feb, they have no help from any of them. Arina Schlink w/ APS is notified that Sara Armstrong agrees to be named guardian for her sister, but the cost is an issue to obtaining guardianship immediately. Arina states she was not aware of the cost and that only 2 family members could help out so she will be going back to her creative coordinator in the am to see what APS can do. Sara also confirms that [facility] would be the LTCF of choice for the kids and herself. [facility] will be contacted tomorrow as a potential discharge option.
[2018-01-04 18:29] VITALS: BP 142/73
--- NOTE | 2018-01-04 18:36 | NUR ---
NO COUGHING WITH EVENING TUBE FEED, TUBE FLUSHES WELL, SITE IS CDI, NO DRAINAGE NOTED AT TRACH SITE OR PEG SITE, ALL DRESSINGS CHANGED AND CDI, NO COUGHING SPELLS NOTED THROUGHOUT THIS NURSES SHIFT TODAY, PT STILL LETHARGIC AND MINIMALLY RESPONSIVE WITH AN OCCASIONAL LAUGH
--- NOTE | 2018-01-04 21:00 | NUR ---
Report received and cares assumed at 1900. Rests in bed with HOB elevated 45 degrees for PEG tube feeding. Some dry hacky coughing noted prior to feeding. No residual noted with PEG tube placement check prior to feeding and medication administration. No verbal response from patient during cares, feeding or trach care. PEG tube dressing changed. Scant amount of dried drainage on old dressing. Trach care provided. Small amount of thick yellow mucous on trach dressing. Coughs during cleaning but cough seems more dry and not as severe as last night. Face and eyes washed. Compression gloves applied. Oral cares provided. Eyes remain closed at all times. MEDICAL CLAIMS ASSISTANT's in to provide turns and flavia-cares. Smith to DD with hazy yellow urine in bag.
--- NOTE | 2018-01-05 05:15 | NUR ---
Accu check was 100. Jevity feeding completed. No residual. Has had a dry harsh cough most of night. Worse this AM. Had prior to feeding but exacerbated with the feeding. HOB is elevated 45 degrees. Oral suction obtains scant secretions. Frequent oral cares provided. Saline nebulizer tx given. Day nurse reports cough only during trach cares yesterday.
[2018-01-05 06:31] VITALS: BP 143/63
--- NOTE | 2018-01-05 07:39 | NUR ---
Report to Joie PELAYO.
--- NOTE | 2018-01-05 09:30 | NUR ---
Medications crushed and given via PEG tube. Tube flushes easily. Cleansed around trach and changed dressing. Noted to have small amount light green mucous under dressing and on flange. New mepilex AG dressing placed under flange. Pt noted to cough with manipulation of trach tube during cleaning but settles down once cleaning is complete. Bilat compression gloves are on hands. Smith catheter intact with cloudy yellow urine to dependant drainage.
[2018-01-05 09:40] LABS: POTASSIUM 4.3 mmol/L (3.6-5.0)
--- NOTE | 2018-01-05 13:30 | NUR ---
Bilat compression gloves removed at this time. Generalized edema noted, fingers have grooves from seams in gloves. No skin breakdown.
--- NOTE | 2018-01-05 18:05 | NUR ---
Arina Ash w/ APS calls this nurse and states that she has consulted w/ her legal consultants who state that the family will need to pursue guardianship on their own at their own cost but the state will not at this time pursue emergent guardianship as the pt is not in imminent danger. Arina's consul has instructed her to go to pt's and explain to him that why pt will need LTC for health and safety issues and that he will be instructed to cooperate w/ [facility] and the LTCF she will be transferred to, and this includes answering phone calls and communicating w/ facilities and signing necessary paperwork as requested. Arina will be contacting family and Mr Davis w/ the above information and assuring them that should pt's spouse attempt to remove pt from any facility caring for her and take her to an unsafe situation they will take additional action, immediately.
[2018-01-05 18:20] VITALS: BP 131/76
--- NOTE | 2018-01-06 00:21 | NUR ---
CHART COMPUTER's report incontinent of stool for 2nd time. More runny this time. Almost liquid.
--- NOTE | 2018-01-06 00:41 | NUR ---
Imodium given via PEG for loose stools.
--- NOTE | 2018-01-06 05:35 | NUR ---
Blood sugar 117. No insulin required. PEG tube feeding administered. No residual noted. HOB elevated 45 degrees. Patient with no cough before,during or after this feeding. Cought has been very minimal tonight vs all other nights this nurse has cared for patient since admission. Resting with no signs of pain or distress. Has not opened eyes. Has made no verbalization except for "ouch" one time with 2100 Accu-check. SENIOR SALES ASSOCIATE's in to reposition and provide oral hygiene Q 2 hours. No further stools after imodium, thus far.
[2018-01-06 06:32] VITALS: BP 111/66
--- NOTE | 2018-01-06 07:20 | NUR ---
Report to Jacki PELAYO.
--- NOTE | 2018-01-06 09:00 | NUR ---
TUBE FEEDING ADMINISTERED AT THIS TIME, NO COUGHING NOTED WITH FEEDING, MINIMAL COUGHING WITH TRACH DRESSING CHANGE DURING MANIPULATION OF THE TRACH, NO ACUTE CHANGES NOTED, PT SEEMS TO BE MORE TIRED THIS AM AND IS NOT OPENING HER EYES THROUGHOUT THIS OCCURENCE, MINIMAL INTERACTION BUT PATIENT DID ENJOY GETTING HER MOUTH CLEANSED WITH THE SPONGES, WOULD HOLD SPONGE TIGHTLY IN HER MOUTH AND CONTINUE OPENING HER MOUTH FOR MORE, NO FURTHER INTERACTION AT THIS TIME
--- NOTE | 2018-01-06 13:21 | NUR ---
TUBE FEEDING ADMINISTERED AT THIS TIME, PT HAD STRONG INTERMITTENT COUGH WITH FEEDING, REPOSITIONING SEEMED TO HELP COUGH MINIMALLY, PT MORE ALERT THAN THIS MORNING, EYES ARE OPEN BUT STILL NON VERBAL
--- NOTE | 2018-01-06 14:18 | NUR ---
NEW UA OBTAINED FROM PATIENTS CATHETER, AFTER OBTAINING UA PT'S CATHETER IS TO BE DC'D PER AND MARTÍN MEJIAS, ALSO COLLECTING ANOTHER STOOL SAMPLE PER TO BE SENT TO LAB FOR C.DIFF TOXINS TESTING
[2018-01-06 15:22] LABS: PH-URINE 7.5 (5.0 - 8.0); URINE APPEARANCE CLOUDY; URINE COLOR YELLOW
[2018-01-06 15:23] LABS: URINE BILIRUBIN NEGATIVE (NEGATIVE); URINE BLOOD 250 ery/uL (NEGATIVE); URINE GLUCOSE NEGATIVE (NEGATIVE); URINE KETONE NEGATIVE (NEGATIVE); URINE LEUKOCYTE ESTERASE 2+ (NEGATIVE); URINE NITRATE POSITIVE (NEGATIVE); URINE PROTEIN(semi-quant) 1+ mg/dL (NEGATIVE); URINE UROBILINOGEN NORMAL (NORMAL); URINE WBC >50 /hpf (0-3)
--- NOTE | 2018-01-06 15:58 | NUR ---
PT TOLERATING SITTING UP IN WHEELCHAIR WELL, FLACC:0, APPEARS TO BE SLEEPING AND COMFORTABLE, KARLA LIFT USED FOR TRANSFER WITH X2 STAFF ASSISTANCE, WILL REMOVE MERINO WHEN BACK IN BED PER MARTÍN MEJIAS
--- NOTE | 2018-01-06 18:00 | NUR ---
PT BACK IN BED, TUBE FEEDING COMPLETED AT 1715, PT COUGHED THROUGHOUT FEEDING EVEN WITH REPOSITIONING, COUGH WAS STRONG AND DRY, INNER CANULA CLEAN AND FREE OF MUCOUS, NO SUCTION NEEDED, PT WOULD OPEN EYES WHILE COUGHING BUT DID NOT INTERACT WITH STAFF OR RESPOND TO VERBAL COMMANDS, ANGELIQUE DOMINGUEZ'Josselin PER ORDER AND BRIEF PLACED ON PATIENT, PATIENT TOLERATED PROCEDURE WELL, NO SIGNS OF DISCOMFORT AT THIS TIME, URINE IS CURRENTLY YELLOW AND CLOUDY, NO ODOR NOTED WHEN REMOVING CATH
[2018-01-06 18:18] VITALS: BP 109/54
--- NOTE | 2018-01-06 18:48 | NUR ---
NEGATIVE CDIFF RESULTS FROM STOOL SAMPLE COLLECTED EARLIER TODAY, NO SPECIAL PRECAUTIONS NECESSARY AT THIS TIME
--- NOTE | 2018-01-06 21:15 | NUR ---
Rests in bed. HOB elevated 45 degrees for PEG feeding and medication administration. Eyes closed. No verable response. PEG placement checked via 30 Ml air instillation and aspiration. No residual noted. Medications given. 30 ML flush before and after. Minimal coughing noted tonight. PEG tube dressing changed. Had small amount of dried brown drainage of drain sponge. Cleansed with NS, dried. New drain sponge applied. Trach care provided. Cough with trach manipulation. Small amount of thick green mucous on old dressing. Skin around trach intact with no break down. No moaning, no response from patient during cares. Assessment completed. Compression gloves applied to bilateral hands. Patient does wince when R glove applied. R hand with contracture and edema. Bilateral hands elevated on pillows. Incontinent of B&B. Staff into provided pericares and repositioned Q 2 hours. This nurse provided oral cares at this time. Closed mouth tight around swab but will relax mouth when instruct to.
--- NOTE | 2018-01-07 05:06 | NUR ---
Accu check 83. No insulin required. HOB elevated 45 degrees for PEG tube feeding. No residual with placement check. Tube patent. 30 ML of water flush before and after feeding. Patient did not open eyes with verbal stimulation or cares. No coughing with this feeding. Has been incontinent of small amount of runny BM with each turn. Incontinent of urine pooling between legs per UNEMPLOYMENT INSPECTOR report.
[2018-01-07 06:06] VITALS: BP 124/61
[2018-01-07 07:08] LABS: POTASSIUM 4.3 mmol/L (3.6-5.0)
--- NOTE | 2018-01-07 07:27 | NUR ---
Report to Jacki PELAYO.
--- NOTE | 2018-01-07 09:00 | NUR ---
MODERATE COUGHING NOTED WITH AM TUBE FEED AND MED ADMINISTRATION, PT'S EYES ARE OPEN, AFTER TUBE FEED THIS NURSE AND GABRIELA ASHLEY WERE CLEANING PATIENT UP AND GETTING HER READY FOR THE DAY AND WHEN THIS NURSE STATED "WE ARE ALMOST DONE JUAN LUIS," JUAN LUIS RESPONDED APPROPRIATELY AND SAID "OKAY" CLEARLY, NO OTHER WORDS WERE SPOKEN AND PT WAS UNABLE TO RESPOND APPROPRIATELY ANYMORE THROUGHOUT THIS ENCOUNTER, PT IS COUGHING LESS THAN YESTERDAY, ALL TRACH CARE COMPLETED AND INNER CANULA CHANGED, OLD CANULA WAS CLEAN AND FREE FROM MUCOUS, COMPLEX ASSESSMENT COMPLETED AND CHARTED, NO ACUTE CHANGES AT THIS TIME, PT IN STABLE CONDITION
--- NOTE | 2018-01-07 13:00 | NUR ---
TUBE FEEDING ADMINISTERED AT THIS TIME, NO RESIDUAL NOTED THROUGH PEG TUBE PRIOR TO FEED, PLACEMENT CHECKED AND APPROPRIATE, PT REPOSITIONED WITH HOB 45 DEGREES, MINIMAL COUGHING THROUGHOUT THIS FEED, PT'S EYES ARE OPEN BUT SHE REMAINS NONVERBAL AND MINIMALLY RESPONSIVE
[2018-01-07 18:12] VITALS: BP 137/66
--- NOTE | 2018-01-07 18:25 | NUR ---
TUBE FEEDING ADMINISTERED AT THIS TIME, NO COUGHING THROUGHOUT FEEDING, 120CC OF BANITROL GIVEN WITH 1300 AND 1700 FEEDING, FLUSHED WITH 30CC PRE AND POST FLUSH ORDERED, NA LEVEL SLOWLY IMPROVING, PT VERY LETHARGIC THIS EVENING, DID NOT WAKE UP DURING EVENING FEED, NO ACUTE CHANGES THIS SHIFT
--- NOTE | 2018-01-07 19:00 | NUR ---
Shift report received from Jacki Gutierrez RN. Pt resting in bed, head of bed elevated at 40 degrees. Pt does open eyes when spoken too or touch. Follows commands, exp, taking deep breaths, squeezing with left hand.
--- NOTE | 2018-01-07 22:05 | NUR ---
[id number] Peg tube feeding done. Pt tolerated feeding without difficulty. Sa02 98% on room air. Pulse 74, respirations 24 and even. Continues to have loose, none productive cough. Bed alarm set. Call light with in reach of pt.
--- NOTE | 2018-01-08 02:42 | NUR ---
0232 Pt noted to have dry, loose cough. Normal Saline treatment given. Lungs sounds CTA in upper and lower lobes. Sa02 99% on room air, pulse 75. Respirations 24 and even.
--- NOTE | 2018-01-08 03:00 | NUR ---
No coughing noted since Normal saline breathing treatment.
--- NOTE | 2018-01-08 05:34 | NUR ---
Dry, loose cough noted. Normal saling treatment given. Sa02 99% on room air. Pulse 77, respirations 24 and even.
--- NOTE | 2018-01-08 05:35 | NUR ---
0500 Ben SILVERMANA notified me, pt's blood sugar 58. Pt opens eyes briefly touched and talk too. 0513 Peg tube feeding given. Pt tolerated without difficulty.
--- NOTE | 2018-01-08 05:40 | NUR ---
Dry, none productive cough noted. Sa02 99% on room air. Pulse 77 and respirations 24 and even. Normal saline breathing treatment given. Tolerated without difficulty.
[2018-01-08 06:33] VITALS: BP 148/67
--- NOTE | 2018-01-08 07:00 | NUR ---
Report given to Joie Rahman RN
--- NOTE | 2018-01-08 07:50 | NUR ---
Pt lying R side, HOB 30*. No obvious distress noted. Changed trach dressing, cleansed around stoma. Thin, pale yellow musous noted around stoma. Changed inner cannula, no mucous present. Protonix given in apple juice and PEG tube flushed without difficulty. Pt wearing brief which is clean/dry at this time.
--- NOTE | 2018-01-08 13:38 | NUR ---
Performed PROM exercises to all extremeties then massaged using lotion at bedside. Performed trach care as pt noted to have increased cough. Under dressing is pale yellow/green mucous. Cleansed area and applied new dressing.
--- NOTE | 2018-01-08 17:46 | NUR ---
Pt noted to have increased dry, non-productive cough this afternoon. Attempted repositioning, checked for increased drainage around trach then administered nebulized saline. This decreased the frequency of cough. Pt appears more comfortable.
[2018-01-08 18:22] VITALS: BP 122/79
--- NOTE | 2018-01-08 19:00 | NUR ---
BEDSIDE SHIFT REPORT RECIEVED FROM GITA ARELLANO. PATIENT RESTING IN BED, CALL LIGHT WITHIN REACH AND BED ALARM ON.
--- NOTE | 2018-01-08 21:54 | NUR ---
PATIENT RESTING IN BED. SHIFT ASSESSMENT COMPLETED AT THIS TIME. PATIENT UNABLE TO ORIENT. PATIENT IS NOT OBSERVED TO BE IN ANY PAIN. LUNGS CTA, SHORTNESS OF BREATH NOT OBSERVED, BARKY COUGH EVIDENT. TRACH CARE PROVIDED. CLONIDINE PATCH CDI TO LEFT UPPER ARM. GENERALIZED NON-PITTING EDEMA NOTED. PEG TUBE DRESSING CDI. TUBE FEEDING AND MEDICATIONS GIVEN. HOB @ 40 DEGREES. PATIENT REPOSITIONED ONTO BACK. WILL CONTINUE TO MONITOR. CALL LIGHT WITHIN REACH AND BED ALARM ON.
[2018-01-09 06:11] VITALS: BP 124/77
--- NOTE | 2018-01-09 09:50 | NUR ---
Pt lying L side. Noted to have increased cough this AM with no production. Tolerates feeding well but continues cough throughout. Once feeding complete, removed dressing, cleansed around trach and placed new dressing. Sticky green/yellow drainage cleaned from beneath flange. Removed inner cannula, suctioned trach via sterile procedure and replaced disposable cannula. Suctioned small amount thick, white sputum from trach. Coughing subsides. Pt remains with HOB at approx 50 degrees, is resting easily.
--- NOTE | 2018-01-09 18:50 | NUR ---
Report received from Joie. Rests in bed. LEGAL COLLECTOR's in changing brief. Report small amount of loose BM and incontinet of urine. Coughing with cares. Repositioned Q 2 hours with oral cares.
[2018-01-09 19:00] VITALS: BP 133/53
--- NOTE | 2018-01-09 22:13 | NUR ---
Repositioned. Incontinent of urine and small amount of soft formed stool. Rectum and flavia area red. Barrier cream applied to rectum and Desenex powder to foldes. HOB elevated 45 degrees for Medications and Jevity feeding via PEG tube. No residual noted with placement check. Coughing started after feeding initiated. Trach dressing changed. Moderate amount of thick yellow phelgm on old dressing. Cleansing completed and new dressing applied. PEG tube dressing removed, had scant amount of dried brown drainage on dressing. Site cleansed with NS and new drain sponge applied. HOB left elevated. Continues to cough intermittently. Accucheck this evening was 206. 4 Units of SS Humalog given with scheduled 36 Units of Levemier.
--- NOTE | 2018-01-09 23:08 | NUR ---
Coughing has ceased at this time.
--- NOTE | 2018-01-10 00:13 | NUR ---
Repositioned. Incontinent of B&B. Oozes stool each time she coughs. Ashli/rectal cares by staff. Bottom red. Barrier cream applied. HOB elevated 30 degrees.
--- NOTE | 2018-01-10 04:48 | NUR ---
HOB elevated for PEG tube feeding. Accu check 104. No need for SS insulin. Has not coughed in past several hours. No residual noted with PEG tube placement check. Feeding taken and no coughing this time. Earlier chart check noted Urine culture back and organism resistent to Cipro. Placed on provider computer for review in AM.
--- NOTE | 2018-01-10 06:06 | NUR ---
Coughs when head lowered with turns and cares but subsided afterwards. No stool with this bed check. Incontinent of urine. Brief changed, pericares provided. Coughed and soaked brief again. New brief and pericares. Repositioned. Weight obtained. Up 3.4 lbs from yesterday.
[2018-01-10 06:30] VITALS: BP 128/60
[2018-01-10 07:29] LABS: ALBUMIN 3.3 g/dL (3.5-5.0); CALCIUM 9.2 mg/dL (8.4-10.2); POTASSIUM 4.3 mmol/L (3.6-5.0); TOTAL BILIRUBIN 0.5 mg/dL (0.2-1.3); TOTAL PROTEIN 6.5 g/dL (6.3-8.2)
--- NOTE | 2018-01-10 07:29 | NUR ---
Report to Layne PELAYO.
--- NOTE | 2018-01-10 08:00 | NUR ---
Lisbeth GARCIA APRN NOTIFIED OF PATIENT'S WEIGHT THIS MORNING. NO NEW ORDERS AT THIS TIME.
--- NOTE | 2018-01-10 09:30 | NUR ---
PATIENT'S PEG FEEDING GIVEN AT THIS TIME. PATIENT TOLERATED WELL. NOTED THAT PATIENT HAS HAD AN OCCASIONAL NON PRODUCTIVE DRY COUGH THIS MORNING. COUGH NOTED MORE DURING FEEDING. BREATHING EVEN AND UNLABORED. TOLERATED FEEDING WELL. TRACH CARE PROVIDED. THERE IS SMALL TO MODERATE AMOUNT OF PALE YELLOW WITH SOME SCANT AMOUNTS OF THIN DRAINAGE PRESENT ON OLD DRESSING TO TRACH. VISIBLE SKIN INTACT AND FREE FROM REDNESSS. CLEANSED AREA PER PROTOCOL. REAPPLIED MEPILEX FOAM. REPLACED INNER CANNULA. NO MUCOUS PRESENT TO OLD TUBE. PATIENT TOLERATED TRACH CARE WELL. NO COUGHING NOTED. PATIETN SITTING UP WITH HEAD OF BED ELEAVTED TO 40 DEGREES. EVERY 2 HOUR T[address] SCHEDULE IN PL[address].
--- NOTE | 2018-01-10 10:10 | NUR ---
Arina Mihir w/ [employer] ([phone]) calls this nurse and states that she has notified pt's that pt will need LTC, possibly sooner than later, and she requests that if is not cooperative to please contact [employer], as she has explained to that [employer] will seek guardianship if he is not cooperative w/ healthcare facilities that are caring for pt as well as if he tries to remove her from a facility AMA or if he tries to withhold payment, [employer] will immediately become involved. Arina states that pt's stated he understood and he knows that he cannot care for his in her current condition, but he continues to believe she will recover to her former state of health prior to this last stroke. Arina states that when the LTCF accepting pt is determined, to please notify her as she personally wishes to speak to the accepting facility's SW. Arina also states that she has notified pt's sister, Sara Armstrong of above and that [employer] will not seek emergency guardianship at this time, because while pt is in a facility, pt is not in imminent danger. Arina states that she will also notify pt's dtr Brii Avendano of above information as well. Sara Armstrong states to this nurse she is overwhelmed w/ trying to consider which LTCF to look into for her sister's care in [place]. She is emailed [employer] list for facilities in [place] for her to review w/ other family members. She states that she will discuss facilities w/ pt's also asking him to consider to have pt become DNR vs Full Code status. She states that she and Brii have been on good terms w/ Mr Davis, and this nurse witnessed telephone call where Mr Davis told CARE Selvage Machine Operator that information can be shared w/ Brii Avendano, Dtr, and Sara Armstrong, sister of pt. Mr Ryan's and pt's children's first choice has been [facility] as it is close to their [facility], however [facility] has not decided to accept pt at this time - family is aware and in agreement w/ checking w/ other facilities in the area.
--- NOTE | 2018-01-10 11:20 | NUR ---
PATIENT'S MERINO CATHETER PLACED BY Lisbeth GARCIA APRN. 30 ML BALLOON INSERTED. IMMEDIATE FLOW OF CLEAR YELLOW URINE OBTAINED UPON PLACEMENT. 5 PERSON ASSIST REQUIRED TO GET MERINO CATHETER IN PLACE. NO UA OBTAINED AT TIME OF MERINO PLACEMENT PER Lisbeth GARCIA APRN'S ORDERS. UPON LAYING PATIENT FLAT ORIGINALLY TO PLACE MERINO PATIENT'S RESPIRATIONS BECOME LABORED AND PATIENT BEGINS GRUNTING AND COUGHING MORE. VISIBLY APPEARS TO BE HAVING DIFFICULTY BREATHING. PATIENT SAT BACK UP WITH HEAD OF BED AT 50 DEGREES. SP02 98% ON ROOM AIR. AFTER APPROXIMATELY 1-2 MINUTES PATIENT'S RESPIRATIONS NOT LABORED AND PATIENT BREATHING MORE COMFORTABLY. Lisbeth WHITT APRN NOTIFIED AND IN ROOM. PATIENT PLACED ON OXYGEN VIA NASAL CANNULA AT 2L PRIOR TO LYING DOWN AGAIN FOR CATHETER PLACEMENT. PATIENT LYING AT APPROXIMATELY 20 DEGREES FOR MERINO PLACEMENT. RESPIRATIONS BECOME LABORED AGAIN BUT NOT MUCH FIRST TIME PATIENT WAS LAYED DOWN. PATIENT SAT BACK UP TO 50 DEGREES. RESPIRATIONS LABORED. SP02 99%. NIR NOTED TO UPPER LOBES BILATERALLY.PATIENT GIVEN PRN DUONEB AND THEN SODIUM CHLORIDE BREATHING TREATMENT. ONCE COMPLETE, PATIENT'S RESPIRATIONS UNLABORED. PATIENT APPEARS TO BE BREATHING COMFORTABLY. NO COUGHING NOTED AT THIS TIME. LUNGS CLEAR. HEAD OF BED ELEVATED TO 45 DEGREES. NO NEW ORDERS AT THIS TIME.
--- NOTE | 2018-01-10 12:20 | NUR ---
PATIENT LEFT FACILITY VIA EMS FOR TRANSFER TO [facility] FOR PICC LINE PLACEMENT.
--- NOTE | 2018-01-10 12:22 | NUR ---
REPORT GIVEN TO GITA MONTES AT [facility].
--- NOTE | 2018-01-10 14:25 | NUR ---
REPORT RECEIVED FROM GITA MONTES AT [facility].
--- NOTE | 2018-01-10 15:05 | NUR ---
PATIENT RETURNED TO FACILITY VIA [facility] FROM [facility]. PATIENT ARRIVES WITH DUAL LUMEN PICC TO RIGHT AC. PATIENT ASSISTED INTO BED. TRACH IN PLACE. MERINO CATHETER TO DEPENDENT DRAINAGE. PEG TUBE IN PLACE.
[2018-01-10 15:35] VITALS: BP 148/84
--- NOTE | 2018-01-10 15:45 | NUR ---
PATIENT'S PICC TO RIGHT AC FLUSHES IN BOTH PORTS WITHOUT DIFFICULTY. BLOOD RETURN OBTAINED IN BOTH PURPLE AND RED LUMENS. PICC LINE HAS GAUZE IN PLACE UNDER TEGADERM DRESSING COVERING PICC INSERTION SITE. PER REPORT FROM [facility] 0 CM FROM INSERTION SITE TO END OF HUB. PATIENT'S RIGHT UPPER ARM MEASURES 52 CM. IV CEFEPIME STARTED AT 200 MLS/HR PER ORDER.
[2018-01-10 18:04] VITALS: BP 143/62
--- NOTE | 2018-01-10 19:00 | NUR ---
Shift report received from Layne Wilkes RN. Resting in bed, head of bed elevated at 45 degrees. Sa02 98% on room air, Pulse 81, respirations 24-26. Has none productive loose cough. Albuterol and Normal saline treatment started. Bed alarm set and call light with in reach of pt.
--- NOTE | 2018-01-10 19:01 | NUR ---
REPORT GIVEN TO GITA HIGGINS
--- NOTE | 2018-01-10 19:41 | NUR ---
1937 Tolerated albuterol and normal saline treatment without difficulty. Tolerated trach care without difficulty. Pulse 83, Sa02 98% on room air. Respirations 24-26 and even. Opened eyes briefly when spoken too. Follows commands when asked to squeeze my fingers with left and right hand. Left hand stronger than right hand.
--- NOTE | 2018-01-10 21:25 | NUR ---
Tolerating peg tube feeding without difficulty. Passive hand and arm exercise done. Pt moaned out and facial grimacing noted. Liquid tylenol given through peg tube.
--- NOTE | 2018-01-10 23:16 | NUR ---
Dry none productive cough. Sa02 97%, Pulse 72, respirations 24-26. Albuterol and normal saline treatment given.
--- NOTE | 2018-01-10 23:50 | NUR ---
2331 Tolerated breathing treatment with out difficulty. Continues to have dry, none productive cough. 2346 Continued to have dry none productive cough. Trach suctioned without difficulty. Pt placed on 4L/NC before suctioning. Small amount of thick moon mucus suctioned from trach. 2348 Pt no longer coughing, Sa02 98% on room air, Pulse 77, respirations 24 and even.
--- NOTE | 2018-01-11 04:35 | NUR ---
None productive cough noted. Opens eyes briefly when touched and spoken too. Trach suction done. Pt tolerated without difficulty. Sa02 99% before suctioning. Sa02 98% after suctioning. Pulse 88, Respirations 24-26
[2018-01-11 06:26] VITALS: BP 158/88
--- NOTE | 2018-01-11 07:00 | NUR ---
Bed side shift report given to Layne Wilkes RN. Notified Layne PELAYO that red ting urine noted in caldwell catheter and on bed chuk.
--- NOTE | 2018-01-11 07:50 | NUR ---
BEDSIDE REPORT RECEIVED FROM RONALDO PELAYO. THIS NURSE AND GITA HIGGINS IN PATIENT'S ROOM. PATIENT'S JHONATAN SOILED WITH URINE. PATIENT NOTED TO HAVE SMALL AMOUNT CLOTS PRESENT IN MERINO CATHETER TUBING URINE COLOR DARK YELLOW/ORANGE. CHECKED CATHETER BALLOON FOR CORRECT AMOUNT OF SALINE. 30 MLS WITHDRAWN. WHEN TRYING TO REINSTILL FLUID DARK ORANGE COLORED LIQUID LEAKING AROUND CATHETER AND ONTO BED SLIGHT RESISTANCE NOTED BY GITA HIGGINS . 5 STAFF MEMBERS IN ROOM TO ASSIST WITH CATHETER CARE. CATHETER FALLS OUT. NOTED THAT BALLOON IS BROKEN ON CATHETER. Lisbeth WHITT APRN NOTIFIED. ORDER TO REPLACE CATHETER WITH ANOTHER 30 ML BALLOON RECEIVED. Johnny HUNT APRN INSERTED CATHETER. IMMEDIATE FLOW OF VERY SMALL AMOUNT OF ORANGE COLORED URINE UPON INSERTION. SECURED CATHETER WITH STAT LOCK. URINE ORANGE WITH SEDIMENT. NO BLOOD OR CLOTS NOTED. SUKH CARE PROVIDED. PATIENT'S VAGINA AND GROIN AREA IRRITATED AND RED, VAGINA NOTED TO HAVE WHAT APPEARS TO BE A SMALL AMOUNT OF YEAST PRESENT.DESSENEX POWDER TO VAGINAL AREA. PATIET'S SACRAL SPLIT AND BUTTOCKS RED AND IRRIATED. BARRIER CREAM APPLIED TO AREA.
--- NOTE | 2018-01-11 11:15 | NUR ---
THIS NURSE IN PATIENT'S ROOM DOING TRACH CARE. PATIENT HAS WET NON PRODUCTIVE COUGH. AUDIBLE AT COARSE WET LUNG SOUNDS WITH BREATHING. GIVEN PRN SODIUM CHLORIDE BREATHING TREATMENT WITH SLIGHT IMPROVEMENT IN COUGH. TRACH SUCTIONED VIA STERILE PROCEDURE AND REPLACED DISPOSABLE INNER CANNULA. NO RESULTS WITH SUCTIONING BUT PATIENT NO LONGER COUGHING OR HAVING NOISY BREATHING. RESPIRATIONS EVEN AND UNLABORED APPEARS TO BE BREATHING WITHOUT DIFFICULTY. PATIENT'S DRESSING TO TRACH SMALL TO MODERATE AMOUNT OF BLOOD TINGED PALE YELLOW/GREEN THICK DRAIANGE PRESENT ON OLD DRESSING. PATIENT HAS LARGER AMOUNT OF THICK GREEN DRAINAGE NOTED TO TRACH CATHETER AND SURROUNDING STOMA. UPON ASSESSMENT NOTED THAT PATIENT HAS MACERATED TISSUE TO LEFT SIDE OF TRACH STOMA. CLEANSED AREA PER PROTOCOL. REAPPLIED NEW MEPILEX AG FOAM TO BETWEEN SKIN AND TRACH CATHETER. WILL CONTACT RT AND WOUND CARE FOR RECOMMENDATIONS ON FURTHER CARE.
--- NOTE | 2018-01-11 11:26 | NUR ---
Contacted Lacey and Nathalieence, RT at [facility] to consult regarding macerated tissue to stoma. RT suggestion as follows: more frequent dressing changes, drying the area around stoma prior to applying dressing, using AG sponge dressing without adhesive, request medication to help control secretions and consult wound therapy for further advise.
--- NOTE | 2018-01-11 12:30 | NUR ---
Consulted Allan, Wound Therapy, who gave the following suggestions for care of stoma to provote healing. Apply skin prep, let dry then apply another layer, each time dressing is changed. Change trach dressing more often. Use Drawtex trach dressing for macerated (white) skin and use an alginate dressing if the area is more reddened. Allan also informs that he will send supplies with fabrication department supervisor this afternoon.
--- NOTE | 2018-01-11 15:07 | NUR ---
Pt's sister Sara calls this nurse and states that she has visited [facility] and spoken to DON herself and DON states that she will be making a visit to [facility] in the next few days to screen pt for possible admission to [facility]. Sara also states that she has left a VM for pt's to let him know that as pt may be discharged to a LTCF before much longer she has obtained a list of ratings of facilities and is visiting various facilities in [place], and will let him know what her thoughts are on them, if he'd like. She states she also left a message asking him to think about changing pt's full code status to DNR, and consider requesting that the trach be removed. She states she has not heard anything back from him at this time.
--- NOTE | 2018-01-11 16:46 | NUR ---
VM is left on Logan Davis's phone informing him that Care Planning meeting was held on this date and that this nurse is happy to share that information w/ him as well as pt condition report, and also welcomes his input. He may contact this nurse at [phone]. Pt's son Bertin is also called and he does answer the phone. Bertin is given the same message as note above with the request that Mr Davis contact this nurse for further information or for any input of his own. This nurse waits on Bertin to get a pen and paper to write down contact number of [phone]. Pt's dtr Brii called and she is aware that LTCF placement is being considered in the near future and she and Sara are conferring on those possibilities together as to which ones Sara will visit.
[2018-01-11 18:16] VITALS: BP 147/84
--- NOTE | 2018-01-11 19:40 | NUR ---
REPORT GIVEN TO GITA DEVINE
--- NOTE | 2018-01-11 20:54 | NUR ---
PATIENT RESTING IN BED LISTENING TO MUSIC. SHIFT ASSESSMENT COMPLETED AT THIS TIME. PATIENT UNABLE TO ORIENT OR ASSESS PAIN. LUNGS CTA, NO SHORTNESS OF BREATH OBSERVED, BARKY COUGH EVERY ONCE IN A WHILE. PATIENT APPEARS PALE THIS EVENING. MERINO CATHETER TO DEPENDENT DRAINAGE, DRAINING CLEAR, PALE YELLOW URINE, SECURED WITH STAT LOCK TO LEFT THIGH. GLOVES CDI ON BILATERAL HANDS WITH PILLOWS ELEVATING ALL 4 EXTREMETIES. DUAL LUMEN PICC TO RIGHT AC CDI, RED LUMEN WITH GOOD BLOOD RETURN AND FLUSHES WITHOUT DIFFICULTY, PURPLE LUMEN NOT ABLE TO BE FLUSHED OR BLOOD RETURN, WILL CONSULT PROVIDER. PEG TUBE DRESSING CDI. FEEDING COMPLETED WITH FLUSH, HS MEDS, 30 MLS PROMOD, BANATROL, AND JEVITY 1.5. TRACH CARE COMPLETED WITH MINIMAL AMOUNT OF DRAINAGE ON PREVIOUS DRESSING. WILL CONTINUE TO MONITOR PATIENT.
[2018-01-12 06:26] VITALS: BP 149/83
--- NOTE | 2018-01-12 10:00 | NUR ---
PEG tube feeding complete, water and feeding flow without difficulty. Pt responds to some conversation with laughter during feeding. Pt noted to have head pulled to R side, this RN attempts to align back to center with much resistance from pt. Trach midline, no drainage noted to flange. Change dressing around trach, noted to have minimal amount green drainage to dressing, all skin under dressing intact with minimal redness. Area of maceration on L side of stoma is greatly improved and inflammation in tissue surrounding stoma has returned to normal. Cleansed around stoma, applied skin protectant and placed new drawtex dressing. Urinary catheter in place with pale yellow urine to dependant drainage. Buttocks remain reddened, no open areas, no breakdown. Apply desenex powder to groin folds and abdominal folds.
--- NOTE | 2018-01-12 16:58 | NUR ---
[facility] has accepted pt w/ 2 requirements, they want her to be on a continuous feeding, no bolus feedings. The second is they need to know what her trach size is. Pt's sister Sara Armstrong has been visiting and states that she has been looking at facilities and she visited [facility] yesterday and she liked what she saw. Stating that it was clean and there was a pt similar to her sister out in a form of chair where she could see what was going on around the facility in a common sitting area - she liked this idea. She states she would like to see her go there. Brii Avendano, pt's dtr is notified and she also approves pt going to [facility]. Respiratory Care Assistant Stephie who has had better results in communicating w/ Mr Davis will notify him tomorrow of transfer plan on 01-14-18, to SNF care in [place] closer to family and request verbal consent for transfer to [facility] facility RN's. Mr Davis was asked to call this nurse after Care Planning meeting to be apprised of our Care Plan and he has not returned the phone call as of this date.
[2018-01-12 18:30] VITALS: BP 124/74
--- NOTE | 2018-01-12 21:40 | NUR ---
Rests in bed with HOB elevated. No coughing noted. IV Maxipime started in purple lumen. Flushed easily with normal saline and good blood return. PEG tube patent. Dressing CDI. No residual noted. Feeding completed with no coughing. Trach dressing with small amount of thick yellow dressing on old sponge. Sight cleansed. New sponge applied. Patient non verbal and eyes remained closed during cares.
--- NOTE | 2018-01-13 03:07 | NUR ---
IV antibiotic ran. Red port unable to flush or get blood return. Picc cap change and still unable to get blood return or flush. RN down to room. After much manupulation and hard pushing was able to get blood return and flush with NS and heparin. IV antibiotic running now without difficulty.
[2018-01-13 06:23] VITALS: BP 143/83
--- NOTE | 2018-01-13 07:12 | NUR ---
Report to Joie PELAYO
--- NOTE | 2018-01-13 09:30 | NUR ---
Pt lying supine during cares and feeding. Tolerates PEG tube feeding well, noted to have increased, non-productive cough. Pt also appears to have increased edema to upper extremeties and increased perspiration. Pt appears in no acute distress. Removed soiled trach dressing, cleansed outer cannula and around stoma, applied skin prep and placed new dressing. All tissue surrounding stoma intact, slightly reddened, minimal amount light green/white secretions cleansed from around outer cannula. PICC to LORRI intact, both lumen flush without difficulty, abx infusing per order. Smith cather intact, yellow urine to dependant drainage. All skin intact. Noted to have redness to buttocks along and including sacral split and also to inner thighs. These areas cleansed with reposition, interdry placed between thighs, barrier cream placed to red areas on buttocks, pt repositioned with pillow between legs and under arms.
--- NOTE | 2018-01-13 10:25 | NUR ---
Calls placed to Logan Davis through Bertin, as he requests, and through his own VM, by risk assessor, Bright Card, GITA. Who also places a call to Alberto Pedroza who lives in the home, whose phone answered and hung up, and another call was placed to Camron Pedroza who lives near by w/ a VM left asking that he get a message to Logan to call the hospital roberto or the risk assessor prior to 10:00am. Bertin returns a call and states that he will not be able to get the message to Logan until 3:00pm and he was told that the risk assessor, Stephie was asking Logan to return the call by 10:00am, he states he will try. Camron Pedroza calls back and asks if his mother is ok and he was told her condition has not changed since he last visited. He states that he has gone and told Alberto that Logan is to call by 10:00. He states, "I cannot go in the house and tell Logan myself or there will be a big blow up". At approximately 10:00 Logan Davis calls this nurse, who tells him that he is on speaker phone and that Joie Rahman RN is also present. He states that is ok as I am recording your conversation also. He is notified that we would like to transfer his to [facility] to continue the same level of care that she is currently getting that would alos continue to be covered by [facility]. It is explained to him that [facility] is a 3.0 star facility closer to his home than another facility that has accepted pt. It is explained that it to her benefit to get her closer to family as we note she is more interactive when her daughters or when Bertin has visited. He then asks, "then why was I not allowed to stay w/ her at your facility?" This nurse explains to him that this has already been explained to him but he may contact our risk assessor, Stephie, for further explanation, and that our facility does not allow family to stay 24/7, nor does any LTC facility in [place], unless of course the family member would like to be admitted, and he can discuss this further with the facility. Mr Davis requests [facility]'s phone number, and he is given the number and the name of the surgical device sales representative with whom this nurse has been speaking. Stephie Novoa is notified of this conversation.
--- NOTE | 2018-01-13 10:30 | NUR ---
Mariana and Denita from [facility] [place] here to screen pt as a potential SN transfer to eventually transition to LTC in their facility. They observe nursing caring for pt and are able to assess her skin. OT, Mala Mcgarry also reviews pt w/ them stating that OT will need to work w/ pt on seating and w/ her hands as we are having problems w/ them swelling and that she can be skilled for OT as well. They request updated MAR and Nutrition notes. They state that pt looks very favorable to them as a potential resident and they hope to have an answer back on this date or tomorrow. They are told that 2 other facilities are also looking at pt for admission, but that they are the family's first choice and they state that they will try to get back as soon as they get approval.
--- NOTE | 2018-01-13 11:00 | NUR ---
VM is left on this nurse's phone from Logan Davis stating, "I cannot approve [facility] at this time as Apryl was not able to answer my questions sufficiently, I have a call scheduled at 1:00pm to speak to her medical record administrator to see if he can answer my questions, and I will let you know."
--- NOTE | 2018-01-13 11:56 | NUR ---
Apryl w/ [facility] calls and states that she did have to tell Mr Davis, in answer to his questions, that he could not stay 24/7 but they did encourage any family member or family members who did not cause problems for the residents or the staff to visit as often as possible, but they would not be allowed to spend the night. Apryl also states that she has a cart arranged for transportation at 10:30 on Wednesday am to their facility. They are awaiting the results of the call w/ the community administrator at 1:00.
--- NOTE | 2018-01-13 14:36 | NUR ---
Apryl w/ [facility] calls and states that they are still willing to accept pt but he is not agreeable to them setting his visiting hours and he won't agree on them accepting her until they meet his demands. Apryl is told that [facility] work is very much appreciated but that the spouse and children's first choice of facilities has just accepted her. Apryl is asked to keep an opening for pt until this is determined for sure as the next facility may decline pt if he gives them the same run around. Apryl states that they are willing to work w/ pt and monitor the spouse and requests APS patient portal representative's name and phone number, which is given to her. She states [facility] is still open to accepting the pt, but they may make a report sooner than later on behalf of the pt based on their conversations w/ Mr Davis, she asks that she be notified when final decision is made.
--- NOTE | 2018-01-13 14:43 | NUR ---
Pt's sister Sara calls and reports to this nurse that APS has contacted her and told her that APS will help w/ any cost over $100 for pursuing Guardianship.
--- NOTE | 2018-01-13 14:47 | NUR ---
Stephie Novoa RN Manager Of Digital is notified of pt's interaction w/ [facility] and of pt being accepted by the facility of choice, [facility]. Stephie will f/u on this and discuss pt SNF placement at one of the 3 accepting facilities ([facility] - any time; [facility] - Wednesday at 10:00; [facility] - Wednesday @ 10:00) in [place] jennifer Logan. The following facilities at this time have declined pt: [facility]; [facility]; [facility]; and [facility]. [facility] not [facility] calls at this time.
[2018-01-13 18:02] VITALS: BP 134/84
--- NOTE | 2018-01-13 23:37 | NUR ---
Rests in bed. Mitzi Duncan RN. in and does cares and feeding this shift. No cough noted tonight. HOB elevated for jevity 1.5 feeding via PEG. No residual noted. PEG tube dressing CDI. Repositioned by staff. Incontinent of soft stool. Ashli area red. Cleansed and Desenex powder applied. No verbalization noted from patient. Remains with generaizied edema. Smith to DD with clear yellow urine. PICC line patent to LORRI.
[2018-01-14 06:20] VITALS: BP 102/65
--- NOTE | 2018-01-14 07:43 | NUR ---
Report to Myrna RN
--- NOTE | 2018-01-14 11:43 | NUR ---
Assessment complete. Patient resting in bed, tube feed and initial interventions completed by GITA Norris. Trach remains capped off. Bed in lowest position, call light within reach. Will cont to monitor.
--- NOTE | 2018-01-14 12:26 | NUR ---
Pt's continues to be uncooperative w/ referrals and facility acceptances of [facility], [facility], [facility] - refusing [facility] and telling Social Workers and Administrators at [facility] and [facility] that he wants to be able to sit a chair by pt's bed 21/12 and he will not agree to transfer as long as facilities cannot meet his needs. It is suggested to him that he consider asking for admission for himself and he could be with her 21/12, he refuses this, telling this nurse that he does not need this care. Manager Global Communications and APS Arina Ash are both notified of pt's spouse holding pt transfer until his requests are met. [facility] is notifed to call Arina Ash, as is [facility]. Pt's dtr Brii Avendano is notified of above as is pt's sister Sara Armstrong which has been approved by Stephie Novoa risk developer.
[2018-01-14 17:33] VITALS: BP 116/69
--- NOTE | 2018-01-14 19:00 | NUR ---
Shift report received from Zeinab Hall RN. Pt resting in bed, head of bed elevated 30 degrees. Bed alarm set and call light with in reach of pt. Pt does not open eyes when spoken too. No facial grimacing noted with moving of hands or arms.
--- NOTE | 2018-01-15 05:00 | NUR ---
Q hourly checks done. Bed alarm set and call light with in reach of pt. Pt has been turned Q two hours. Continues to have loose stools. Double lumen PICC line with purple and red ports patent. Smith Catheter to dependant drainage. Neck pillow around neck. Pt has not opened eyes when spoken too or touched. Sa02 99% on room air.
[2018-01-15 06:32] VITALS: BP 129/52
--- NOTE | 2018-01-15 07:10 | NUR ---
Report given to Lois Louis RN
--- NOTE | 2018-01-15 09:00 | NUR ---
Pt not reponsive to verbal. Eyes remain closed when addressed. Occasional cough noted. Lungs coarse. Repositioned frequently. Generalized edema to hands and feet. Smith patent yellow urine. Trach in place - capped. PEG in place. Having some loose stools the ELECTRIC RANGE SERVICER reports. Buttocks appears raw and reddend with a few areas of shearing. Periare noted to have some redness also. Desenex powder applied. Vasoline tried as barrier instead of barrier cream product.
--- NOTE | 2018-01-15 17:31 | NUR ---
No family noted here today. Pt to being continuous nighttime feedings tonight. Pt has tolerated daytime feedings well w/ only 5 ml of residual prior to feedings. Eyes open occasionally w/ repositioning today.
[2018-01-15 18:47] VITALS: BP 100/54
--- NOTE | 2018-01-15 20:10 | NUR ---
Report to GITA Loo.
[2018-01-16 06:32] VITALS: BP 124/71
--- NOTE | 2018-01-16 07:00 | NUR ---
bedside shift report given to Allyssa Castellon-GITA, patient has rested comfortably through the night, was turned every 2 hours with oral cares and flavia cares performed with each turn, breakdown of buttock improving, multiple small loose stools throughout the night, caldwell in place draining clear yellow urine without difficulty, side rails up x 2,
--- NOTE | 2018-01-16 09:05 | NUR ---
Dule luman PICC line paced in right AC Purple lumen has blood return and flushes wityh out difficulties, Red luman does not flush or have blood return. Antiboitics run in with out difficulties.
--- NOTE | 2018-01-16 17:35 | NUR ---
Pt offeres no verbal respons when speaking to pt but will try to pull away from stimuli. Sister was in for a visit and sits at bedside for a few hours. PEG tube, and trach cares done as oprders. PEG continuous feeding was completed at 0830 tube has been fulshe 3 times since feeding complete no problems with the flow of the peg tube. Hands and feet continue to be edematous with no pitting. Hands and feet are elevated on pillows at most times. Dual lumen PICC line in RT AC purple lumen flushes easliy and has blood return. Red lumean had no blood return and this nurse is unable to flush line. Smith cath to dependant drainage with clear yellow urine. No family in to visit nor any family phone chelly requestiong a report on pt.
[2018-01-16 18:22] VITALS: BP 120/61
--- NOTE | 2018-01-16 19:05 | NUR ---
Shift report received from Allyssa Castellon RN. Resting in bed, head of bed elevated at 35 degrees. Bed alarm set and call light with in reach of pt. Pt continues to be verbally none responsive. Does not responsed to verbal commands. Sa02 95% on room air. Pulse 81 and respirations 24 and even.
--- NOTE | 2018-01-16 21:00 | NUR ---
Passive hand and arm exercises done. Pt opened eyes. Sa02 95% on room air. Pulse 72, respirations 24 and even. Occasional loose cough noted.
--- NOTE | 2018-01-17 01:30 | NUR ---
Resting in bed, bed alarm set. Sa02 96-99% on room air. Pulse 89, respirations 24-26. Continues to having loose none productive cough. Peg tube feeding infusing at 90mls/hr since 1999. Pt tolerating without difficulty.
[2018-01-17 02:35] VITALS: BP 136/81
[2018-01-17 02:47] VITALS: BP 136/81
--- NOTE | 2018-01-17 02:47 | NUR ---
0230 Loose cough, respiration 26-28, slightly labored. Pulse 101, Sa02 97% on room air. Axillary temp 98.7. Albuterol breathing treatment started. 0245 Tolerated breathing treatment without difficulty. Sa02 97% on room air. Pulse 96, respirations 24 and even. Blood Pressure 136/81. Lung sounds slightly coarse on expirations.
--- NOTE | 2018-01-17 02:48 | NUR ---
0232 Facial grimacing noted. Hands griping hand toys. Tylenol 320mg via Peg tube given.
--- NOTE | 2018-01-17 02:49 | NUR ---
0235 Hand and arm exercises done. Facial grimacing noted. Pt opened eyes x 1.
--- NOTE | 2018-01-17 07:05 | NUR ---
Bed side shift report given to Jeanine Vaz RN
--- NOTE | 2018-01-17 09:30 | NUR ---
CONTINIOUS FEEDING COMPLETE. PT REMAINS RESTING IN BED WHILE THIS NURSE AND ECONOMICS CONSULTANT FINISH AM CARES. NO S/S OF DISTRESS AT THIS TIME. TRACHE CLEANED AND INNER TUBE AND DRESSING CHANGED. PT TOLERATES WELL. NO OTHER NEEEDS NOTED AT THIS TIME.
--- NOTE | 2018-01-17 09:45 | NUR ---
On Wednesday01-14-18 pt's spouse had been notified that this nurse would be unavailable after 1230, and if he did not have an answer that he would accept pt transfer to [facility], which was his first choice originally, that he would have to give that answer to Stephie Novoa RN Pipe Stem Repairer, whose number he has. On this date there are 3 VM's from Logan Davis on this nurse's phone. On 01-14-18: At 1245 Logan Davis states that I have not heard back from [facility]'s Admininstrator, yet; At 1359 Mr Davis's VM states, "I have spoken to Mr Ruth and I aprove Akua to go to [facility] on Wednesday at 1000"; At 1420, BRODY Castaneda from [facility] leaves VM and requests that this nurse call her back as pt is making requests that they cannot meet for 21/12 visitation; At 1430 Mr Davis leave a VM that states, "I withdraw my permission for Akua to be transferred to [facility] approximately 1/2 hour after I gave my permission. I have spoken to their sr. unix system administrator, Mr Ruth and he left me in a position that I could agree, but then the BRODY called and gave me grounds that I cannot agree to, so Akua may NOT be transferred to [facility] on Wednesday, thank you." 1430 Mr Davis
[2018-01-17 12:03] LABS: ALBUMIN 3.5 g/dL (3.5-5.0); CALCIUM 9.8 mg/dL (8.4-10.2); POTASSIUM 4.7 mmol/L (3.6-5.0); TOTAL BILIRUBIN 0.6 mg/dL (0.2-1.3); TOTAL PROTEIN 7.2 g/dL (6.3-8.2)
--- NOTE | 2018-01-17 15:48 | NUR ---
At 1307 on 01-14-18, Tiana w/ [facility] left a VM that stated that their staff would be out to screen pt (on 01-17-18) Wednesday morning. At 1030 01-17-18, this nurse calls Mr Davis's phone, and attempts to leave VM, but the message cuts off and begins replaying as I am on the phone. Bertin, pt's son, whom Mr Davis directs [facility] to call if they wish to speak to him and he will then determine if he needs to return the call, is then called and a VM is left on his phone stating that it appears [facility] may accept his mother and I need Mr Davis to call me back to discuss her potential transfer to this facility. On 01-17-18 @ 1045, Tiana and AMI from [facility] arrive, screen pt and state that they have availability and will accept pt. They are aware that pt's has refused 3 other facilities because they would not allow him to stay 24/7 and they state that they will have to tell him the same. They are also aware from pt's sister, that Sara is seeking guardianship and that APS is involved. They also suggest that they will need a couple of days to arrange for some room rearranging since pt will ultimately need LTC and they feel it would be best even if they bring pt SN that she start in the same bed placement where she will end up. Stephie Novoa, GITA Speech Therapist Technician states that Sara may be notified of thi. Sara is and she is very grateful [facility] and states that this is where she would like pt to go. On 01-17-18 @ approx 1245 Mr Davis leaves a VM stating to this nurse that he has called [facility] and Tiana is not available, but when she returns he will discuss Akua's transfer further and will let us know of his decision. On 01-17-18 @ 3:30 [facility], Apryl, calls to state that pt's spouse has called them today to check that he would be able to stay w/ pt. Apryl states to this nurse that their employee benefits administrator last week had agreed to admit Akua to a private room as she would be MCR A and while she was in that room, Mr Davis could stay the first couple of nights w/ her while she settled in. However, she states that today she has had to tell him that over the weekend they filled that room and that Akua will have to go into a semi-private room and he cannot stay 24/7 in the room where she has a roommate. Mr Davis asked her couldn't he just talk to the roommate and see if they could work it out, and Apryl had to tell him no. She then stated that he told her he would have to reconsider and think about it for now. On 01-17-18 @ 1615, this nurse calls [facility], Keshia De Leon RN, who states to this nurse that Mr Davis called BRODY Doe, earlier and he wanted to know if his came there could he bring a cot into her room and stay 24/7 with her. They firmly told him no. 1630 Logan Davis has not yet returned a call to this nurse as he has said he would after speaking to [facility]. This nurse calls his phone # and leaves a message requesting that he respond as to whether he would agree to have his transferred to [facility]. Bertin is also contacted and requested that he have Logan Davis contact this nurse. 1635 Mr Davis calls and states that he does not approve of pt going to [facility] because of their visitation rules. He states that [place] Kitchen Chef and he had worked something out until the SW had to go over the employee benefits administrator's head and call corporate. This nurse again mentions to Mr Davis that if he would like to stay 24/7 with his he has he considered asking to be admitted to LT and request a double room with his . He states, "I don't believe I would qualify for this, and he is told that according to [facility] they stated to us that he had quite a bit of difficulty ambulating through their facility w/ his walker, so he may very well qualify, and it might be worth discussing w/ a BRODY." ([place] BRODY has told this nurse that she had offered him this, and he refused saying he wasn't ready for this and his son would lose a place to stay if he did this). It is also gently pointed out to him to that when he asks to be at her bedside 21/12, he is asking to live in the facility w/o paying to live there. He then states, "I am trying to work something out w/ [facility], I have asked for visiting hours between 10pm and 6am instead of 24/, we are still discussing this, I will let you know."
[2018-01-17 18:07] VITALS: BP 137/80
--- NOTE | 2018-01-17 18:21 | NUR ---
AFTER GETTING INTO THE CHAIR VIA LIFT AT 1530 PT IS MOVED BACK TO BED AT 1745. PT TOLERATES WELL. HAS LOOSE STOOL AND IS CLEANED. GIVEN SCHEDULED MEDS VIA PEG WITHOUT DIFFICULTY. NOW RESTING IN BED NO S/S OF DISTRESS AT THIS TIME.
--- NOTE | 2018-01-17 19:00 | NUR ---
BEDSIDE SHIFT REPORT RECIEVED FROM RJ-GITA AT THIS TIME, PATIENT SITTING UP IN BED WITH EYES CLOSED, MERINO DRAINING CLEAR YELLOW URINE WITHOUT DIFFICUTLY, TRACH CAPPED, PICC LINE IN PLACE TO RIGHT AC, PEG TUBE CLAMPED,
[2018-01-18 06:23] VITALS: BP 149/80
--- NOTE | 2018-01-18 07:15 | NUR ---
bedside shift report given to Mitzi Wasserman-GITA at this time, patient resting quietly with tube feeding infusing without difficulty, caldwell in place draining clear yellow urine, call light within reach, bed alarm activated
--- NOTE | 2018-01-18 09:20 | NUR ---
Report received from Jai Sheppard RN. Pt in bed, HOB and extremities x4 elevated. Pt does not arouse or open eyes during assessment. Tube feed complete. Residual checked and tube flushed. Meds given per tube without issue. Blood return easily from R AC double lumen PICC. Trach care provided per order. Bed locked and low.
[2018-01-18 13:10] LABS: URINE APPEARANCE HAZY; URINE BILIRUBIN NEGATIVE (NEGATIVE); URINE BLOOD 250 ery/uL (NEGATIVE); URINE COLOR YELLOW; URINE GLUCOSE NEGATIVE (NEGATIVE); URINE KETONE NEGATIVE (NEGATIVE); URINE LEUKOCYTE ESTERASE NEGATIVE (NEGATIVE); URINE MUCUS PRESENT (NOT PRESENT); URINE NITRATE NEGATIVE (NEGATIVE); URINE PROTEIN(semi-quant) 2+ mg/dL (NEGATIVE); URINE UROBILINOGEN NORMAL (NORMAL)
[2018-01-18 17:50] VITALS: BP 153/74
--- NOTE | 2018-01-18 20:00 | NUR ---
Report recevied from Layne Vergara RN. Jevity 1.5 tube feed started at this time. To run at 90 ML/HR. No residual noted with placement. Patient rests with eyes closed. No response with assessment. HOB elevated 30 degrees. Generalized edema all over. Hands and arms elevated on pillows. Compression gloves wet at this time. Washed by day SOLDERER TORCH and hung to dry. No signs of pain or distress. Bed alarm on.
--- NOTE | 2018-01-19 03:27 | NUR ---
Repostioned with oral cares Q 2 hours by staff. Jevity 1.5 tube feeding contiues via pump. Has been incontinent of B&B with each turn. Desentx powder applied after pericares.
[2018-01-19 06:24] VITALS: BP 126/77
--- NOTE | 2018-01-19 10:00 | NUR ---
Lisbeth WHITT APRN NOTIFIED OF PATIENT'S WEIGHT OF 226 AND THAT PATIENT IS UP 2 POUNDS. ALSO NOTIFIED THAT PATIENT'S TEMPERATURE WAS 99.6 WHEN IT WAS RECHECKED THIS MORNING AND IT HAS BEEN RUNNING THAT FOR 0700 VITALS AND LAST NIGHT. NO NEW ORDERS AT THIS TIME.
--- NOTE | 2018-01-19 17:34 | NUR ---
Spoke with pt sister Sara and she gives verbal consent for pt to be transferred to [facility] by [facility] with [employer] [facility].
--- NOTE | 2018-01-19 17:57 | NUR ---
Letters of Temporary Guardianship that appoints Sara Nathaniel, sister of pt, Akualane Cui, as temporary guardian stating Sara has the authority to secure placement of pt in [facility], have been received via fax from salesperson neckties, Elizabeth Jackson @ 4:11 pm on 01-19-18. Sara Nathaniel is notified and she is aware. Sara gives Wandy Marinelli RN and this nurse, Nika Daly RN telephone consent to transfer pt to [facility] on 01-19-18 @ 11:00 via [employer] who will transport pt via [facility]. Nursing Staff has been notified. [facility] rep, Pauly Garces confirms that [facility] will accept pt and that transportation has been arranged as above noted.
[2018-01-19 19:00] VITALS: BP 131/77
--- NOTE | 2018-01-19 19:00 | NUR ---
BEDSIDE SHIFT REPORT RECIEVED FROM TRENT-GITA AT THIS TIME, PATIENT RESTING QUIETLY IN BED, RESP EVEN/UNLABORED, SIDE RAILS UP X 2, CALL LIGHT WITHIN REACH,
[2018-01-20 06:16] VITALS: BP 136/80
[2018-01-20] MEDS ORDERED: CATAPRES-T0.1 MG/24 TD (08:14)
[2018-01-20] MEDS ORDERED: PROTONIX40 MG/Pack PO (08:14)
[2018-01-20] MEDS ORDERED: ACETAMINOP160 MG/13 PEG (08:14)
[2018-01-20] MEDS ORDERED: LEVEMIR FLEX100 U/ML SQ (08:14)
[2018-01-20] MEDS ORDERED: CARVEDILOL25 MG PO (08:14)
[2018-01-20] MEDS ORDERED: RANITIDINE15 MG/ML PO (08:14)
[2018-01-20] MEDS ORDERED: MAG64 110 MG-181 ECT PO (08:14)
[2018-01-20] MEDS ORDERED: NEIGH PO (08:14)
[2018-01-20] MEDS ORDERED: NOVOLOG FLEX100 U/ML SQ (08:14)
[2018-01-20] MEDS ORDERED: EFFER-K20 MEQ PO (08:14)
[2018-01-20] MEDS ORDERED: ALBUTEROL2.5 MG/3 M IH (08:14)
[2018-01-20] MEDS ORDERED: ZESTRIL5 M1 PO (08:14)
[2018-01-20] MEDS ORDERED: IPRATROPIUM BROM3 M1 IH (08:14)
[2018-01-20] MEDS ORDERED: DESENEX2% TP (08:14)
[2018-01-20] MEDS ORDERED: [UNRECOGNIZED DRUG - OTHER] IH (08:14)
[2018-01-20] MEDS ORDERED: LIPITOR20 M2 PO (08:14)
[2018-01-20] MEDS ORDERED: FUROSEMIDE20 MG PO (08:14)
[2018-01-20] MEDS ORDERED: CHILDREN'S ASPI81 M1 PO (08:14)
[2018-01-20 09:28] VITALS: BP 136/80
--- NOTE | 2018-01-20 10:00 | NUR ---
PATIENT PROVIDED ORDERED MEDICATIONS VIA PEG TUBE. PROPER PLACEMENT FOR PEG CONFIRMED WITH 30 ML AIR BOLUS. 10 MLS OF REYNAGA RESIDUAL NOTED. CHANGED DRESSING TO PEG SITE. SCANT AMOUNT OF DRIED BROWN DRAINAGE PRESENT ON OLD DRESSING. PEG SITE FREE FROM REDNESS OR DRAINAGE. DRAIN GAUZE REAPPLIED TO AREA. PATIENT'S PICC CAPS CHANGED AT THIS TIME. PICC FLUSHED WITH 10 MLS STERILE SALINE PER PROTOCOL. BOTH PORTS SLOW TO FLUSH BUT FLUSHES WITHOUT DIFFICULTY. BLOOD RETURN NOTED IN BOTH PORTS.HEPARINIZED BOTH PORTS PER POLICY. TRACH CARE PROVIDED AT THIS TIME. WHILE STANDING AT BEDSIDE NOTED THAT PATIENT SOUNDS THOUGH SHE HAS PHLEGM THAT IS LOOSE BUT IS UNABLE TO CLEAR. PROVIDED PRN DUONEB AND SALINE TREATMENT.
[2018-01-20 10:25] VITALS: BP 136/80
--- NOTE | 2018-01-20 10:59 | NUR ---
Discharge records signed by Dr Persaud are faxed to Pauly Garces at [facility]. Pt is ready for discharge. Her air mattress will be sent with her. Akua is informed of her transfer by both Layne Wilkes RN and this nurse - she opens her eyes and listens, but makes no comment. She is told that she will be closer to family where they can visit her more easily and that she is being admitted to [facility] where her mother once lived and it also has a [facility] rating of being a 5 star Prison and is the highest rated facility in [place], and we expect her to receive excellent care and her sister Sara will watch over her and see that she gets all she needs.
--- NOTE | 2018-01-20 11:00 | NUR ---
ORDER CLARIFICATION FOR DISCHARGE MEDICATIONS. PATIENT IS NOT TO BE ON [facility] DAILY UPON DISCHARGE. APPROPRIATE CHANGES MADE TO DISCHARGE ORDERS.
[2018-01-20 11:37] VITALS: BP 112/74
--- NOTE | 2018-01-20 12:18 | NUR ---
patient left facility via cot to transportation vehicle. accompanied by transportation company employee. personal belongings and transfer paperwork sent with employee.
--- NOTE | 2018-01-20 12:32 | NUR ---
BEDSIDE REPORT RECEIVED FROM Lisbeth LEES RN
--- NOTE | 2018-01-20 13:42 | NUR ---
report given to loli mendoza at assisted patient was transfered to. denies any questions for the nurse at this time.
== END 2018-01-20 12:18 | DRG 947 ==
LOC: MED/SURG 12:50
PROVIDERS: Family Medicine; Nurse Practitioner; Nurse Practitioner Primary Care; Physician Assistant; ADMIT Internal Medicine
DX: R53.81 Other malaise (principal); G93.40 Encephalopathy, unspecified; I69.354 Hemiplegia and hemiparesis following cerebral infarction affecting left non-dominant side; I69.351 Hemiplegia and hemiparesis following cerebral infarction affecting right dominant side; T83.511A Infection and inflammatory reaction due to indwelling urethral catheter, initial encounter; I42.9 Cardiomyopathy, unspecified; E87.1 Hypo-osmolality and hyponatremia; I69.311 Memory deficit following cerebral infarction; I10 Essential (primary) hypertension; Z93.0 Tracheostomy status; M79.7 Fibromyalgia; G89.29 Other chronic pain; B96.5 Pseudomonas (aeruginosa) (mallei) (pseudomallei) as the cause of diseases classified elsewhere; E83.42 Hypomagnesemia; R13.10 Dysphagia, unspecified
CPT/HCPCS: J0692; J1815; J1940